=== PATIENT | female | born 1985 | race African-American/Black ===

== ENCOUNTER 2016-05-22 15:36 | Emergency (ER) | payer MEDICAID ==
[~2016-05-22] VITALS: Ht 167.6 cm; Wt 120.0 kg
[~2016-05-22 15:36] MED LIST: ALBUAER3 INH; ASPI325T PO; IBUP-232 PO; PHEN1TAB84 PO
[2016-05-22 15:37] VITALS: BP 119/99; PULSE 97; RESP 15; TEMP 98.6; O2SAT 98
--- NOTE | 2016-05-22 17:06 | PD ---
HPI Chief Complaint: Respiratory Symptoms Time Seen by Provider: 17:06 Travel History International Travel<30 days: No Contact w/Intl Traveler<30days: No Traveled to known affect area: No History of Present Illness HPI 30-year-old female presents to emergency department for evaluation of nausea, vomiting, diarrhea, fever, chills, cough, and chest congestion worsening over the last 5 days. Patient states that she feels "awful." She is unable to keep anything down. Denies any hematemesis or hematochezia. No urinary symptoms. No chest pain or tightness. No other symptoms to report. 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, WAS IN [facility] FOR 8 MONTHS IN 2011) Psychiatric: Yes Reproductive: Yes (teratoma of the ovary) Respiratory: Yes (asthma) Immunizations Current: No Migraines: No Myocardial Infarction: No Radiation Therapy: No Renal Failure: Yes Seizures: Yes Sleep Apnea: No Thyroid Disease: No Ulcer: Yes (stomach) ?: Not Menopausal: No : 5 Para: 3 Miscarriage: 1 : 1 Ovarian Cysts: Yes Past Surgical History Abdominal Surgery: No AICD: No Arteriovenous Shunt: No Cardiac Surgery: No Ear Surgery: No Endocrine Surgery: No Eye Surgery: No Genitourinary Surgery: No Gynecologic Surgery: Yes (BILAT OOPHORECTOMY) Insulin Pump: No Joint Replacement: No Oral Surgery: No Pacemaker: No Thoracic Surgery: No Other Surgery: Yes (ovary removed) Social History Alcohol Use: No Tobacco Use: Yes (CIGARS) Substance Use: Yes (MARIJUANA LAST WEEK) Allergies-Medications (Allergen,Severity, Reaction): Coded Allergies: Penicillin (Verified Allergy, Severe, UNKNOWN, 05/22/16) Tramadol (Verified Allergy, Severe, Anaphylaxis, 05/22/16) Sumatriptan (Verified Allergy, Intermediate, 05/22/16) increased headache Reported Meds & Prescriptions Reported Meds & Active Scripts Active Reported Adipex-P (Phentermine HCl) 37.5 Mg Tab 37.5 Mg PO DAILY Review of Systems Except as stated in HPI: all other systems reviewed are Neg Physical Exam Narrative GENERAL: Well-nourished female patient, lying in bed, in no acute distress SKIN: Warm and dry. HEAD: Atraumatic. Normocephalic. EYES: Pupils equal and round. No scleral icterus. No injection or drainage. ENT: No nasal bleeding. There is clear nasal discharge. Mucous membranes pink and moist. NECK: Trachea midline. No JVD. CARDIOVASCULAR: Elevated rate and rhythm. No murmur appreciated. RESPIRATORY: No accessory muscle use. Coarse to auscultation. Breath sounds equal bilaterally. GASTROINTESTINAL: Abdomen soft, non-tender, nondistended. Hepatic and splenic margins not palpable. MUSCULOSKELETAL: No obvious deformities. No clubbing. No cyanosis. No edema. NEUROLOGICAL: Awake and alert. No obvious cranial nerve deficits. Motor grossly within normal limits. Normal speech. PSYCHIATRIC: Appropriate mood and affect; insight and judgment normal. Data Data Last Documented VS Vital Signs Date Time Temp Pulse Resp B/P Pulse Ox O2 Delivery O2 Flow Rate FiO2 05/22/16 22:39 84 20 98 Room Air 05/22/16 22:39 124/67 05/22/16 15:37 98.6 Orders Influenzae A/B Antigen (05/22/16 17:03) Chest, Single Ap (05/22/16 ) Complete Blood Count With Diff (05/22/16 17:03) Basic Metabolic Panel (Bmp) (05/22/16 17:03) Urinalysis - C+S If Indicated (05/22/16 17:03) Ed Urine Pregnancytest Poc (05/22/16 17:03) Albuterol-Ipratropium Neb (Duoneb Neb) (05/22/16 17:15) Sodium Chlor 0.9% 1000 Ml Inj (Ns 1000 M (05/22/16 23:00) Ondansetron Inj (Zofran Inj) (05/22/16 23:00) Albuterol-Ipratropium Neb (Duoneb Neb) (05/23/16 01:00) Labs Laboratory Tests Test 05/22/16 05/22/16 18:00 18:30 White Blood Count 2.2 TH/MM3 Red Blood Count 4.52 MIL/MM3 Hemoglobin 13.2 GM/DL Hematocrit 39.7 % Mean Corpuscular Volume 87.9 FL Mean Corpuscular Hemoglobin 29.2 PG Mean Corpuscular Hemoglobin 33.2 % Concent Red Cell Distribution Width 13.4 % Platelet Count 182 TH/MM3 Mean Platelet Volume 8.1 FL Neutrophils (%) (Auto) 46.4 % Lymphocytes (%) (Auto) 43.8 % Monocytes (%) (Auto) 8.8 % Eosinophils (%) (Auto) 0.7 % Basophils (%) (Auto) 0.3 % Neutrophils # (Auto) 1.0 TH/MM3 Lymphocytes # (Auto) 1.0 TH/MM3 Monocytes # (Auto) 0.2 TH/MM3 Eosinophils # (Auto) 0.0 TH/MM3 Basophils # (Auto) 0.0 TH/MM3 CBC Comment DIFF FINAL Differential Comment Sodium Level 138 MEQ/L Potassium Level 3.9 MEQ/L Chloride Level 104 MEQ/L Carbon Dioxide Level 28.3 MEQ/L Anion Gap 6 MEQ/L Blood Urea Nitrogen 17 MG/DL Creatinine 0.82 MG/DL Estimat Glomerular Filtration 98 ML/MIN Rate Random Glucose 87 MG/DL Calcium Level 8.5 MG/DL Urine Color YELLOW Urine Turbidity HAZY Urine pH 6.0 Urine Specific [place] 1.026 Urine Protein 100 mg/dL Urine Glucose (UA) NEG mg/dL Urine Ketones NEG mg/dL Urine Occult Blood NEG Urine Nitrite NEG Urine Bilirubin NEG Urine Urobilinogen 2.0 MG/DL Urine Leukocyte Esterase NEG Urine RBC LESS THAN 1 /hpf Urine WBC 3 /hpf Urine Squamous Epithelial 3 /hpf Cells Urine Bacteria OCC /hpf Urine Mucus FEW /lpf Microscopic Urinalysis Comment CULT NOT INDICATED MDM Medical Decision Making Medical Screen Exam Complete: Yes Emergency Medical Condition: Yes Medical Record Reviewed: Yes Differential Diagnosis Influenza versus pneumonia versus gastroenteritis versus viral syndrome Narrative Course 30-year-old female presents to emergency department for evaluation. Patient appears without distress however she appears like she does not feel well. Workup was initiated in triage. Once a medical bed becomes available, patient will be transferred and care assumed by that provider Condition: Stable Joanna Mendez May 22, 2016 17:06
[2016-05-22] MEDS ORDERED: RESP: ALBUTEROL 2.5 MG/IPRATROPIUM 0.5 MG NEB (SCH) NEB ONE (17:15)
--- NOTE | 2016-05-22 17:21 | RADRPT ---
EXAM DATE/TIME: 05/22/2016 17:14 [facility] COMPARISON: CHEST SINGLE AP, March 28, 2016, 17:55. INDICATIONS : Cough and congestion. MEDICAL HISTORY : Asthma. SURGICAL HISTORY : None. ENCOUNTER: Initial ACUITY: 4 - 6 days PAIN SCORE: 0/10 LOCATION: Bilateral chest FINDINGS: A single view of the chest demonstrates the lungs to be symmetrically aerated without evidence of mas s, infiltrate or effusion. The cardiomediastinal contours are unremarkable. Osseous structures are intact. CONCLUSION: No acute disease. No significant change has occurred. Colby Bright MD on May 22, 2016 at 17:19 Board Certified Radiologist. This report was verified electronically.
[2016-05-22 18:19] LABS: BASOPHIL % 0.3 % (0.0-2.0); EOSINOPHIL % 0.7 % (0.0-4.0); HEMATOCRIT 39.7 % (35.0-46.0); HEMO FLAGS DIFF FINAL; LYMPH % 43.8 % (9.0-44.0); MEAN CELL VOLUME 87.9 FL (80.0-100.0); MEAN CORPUSCULAR HEMOGLOBIN 29.2 PG (27.0-34.0); MEAN CORPUSCULAR HGB CONC 33.2 % (32.0-36.0); MONO % 8.8 % (0.0-8.0); NEUT % 46.4 % (16.0-70.0); PLATELET COUNT 182 TH/MM3 (150-450); RED BLOOD COUNT 4.52 MIL/MM3 (4.00-5.30); RED CELL DISTRIBUTION WIDTH 13.4 % (11.6-17.2); WHITE BLOOD COUNT 2.2 TH/MM3 (4.0-11.0)
[2016-05-22 18:47] LABS: BICARBONATE 28.3 MEQ/L (21.0-32.0); POTASSIUM 3.9 MEQ/L (3.5-5.1)
[2016-05-22 19:09] LABS: BACTERIA, URINE OCC /hpf; BLOOD, URINE NEG (NEG); COMMENT (UR) CULT NOT INDICATED; CULTURE IF INDICATED CULT NOT INDICATED; GLUCOSE,URINE NEG (NEG); KETONE, URINE NEG (NEG); MUCUS URINE FEW /lpf (OCC); NITRITE,URINE NEG (NEG); SQUAMOUS EPITHELIAL CELL URINE 3 /hpf (0-5); URINE COLOR YELLOW (YELLW/STRAW)
[2016-05-22 22:39] VITALS: BP 124/67; PULSE 65; RESP 18; O2SAT 98
[2016-05-22] MEDS ORDERED: ONDANSETRON HCL 4 MG/2 ML VIAL IV PUSH ONE (23:00)
[2016-05-22] MEDS ORDERED: SODIUM CHLOR 0.9% 1000 ML INJ 1,000 ML IV ONE (23:00)
--- NOTE | 2016-05-22 23:05 | PD ---
Physical Exam Date Seen by Provider: May 22, 2016 Data Data Last Documented VS Vital Signs Date Time Temp Pulse Resp B/P Pulse Ox O2 Delivery O2 Flow Rate FiO2 05/22/16 22:39 84 20 98 Room Air 05/22/16 22:39 124/67 05/22/16 15:37 98.6 Orders Influenzae A/B Antigen (05/22/16 17:03) Chest, Single Ap (05/22/16 ) Complete Blood Count With Diff (05/22/16 17:03) Basic Metabolic Panel (Bmp) (05/22/16 17:03) Urinalysis - C+S If Indicated (05/22/16 17:03) Ed Urine Pregnancytest Poc (05/22/16 17:03) Albuterol-Ipratropium Neb (Duoneb Neb) (05/22/16 17:15) Sodium Chlor 0.9% 1000 Ml Inj (Ns 1000 M (05/22/16 23:00) Ondansetron Inj (Zofran Inj) (05/22/16 23:00) Labs Laboratory Tests Test 05/22/16 05/22/16 18:00 18:30 White Blood Count 2.2 TH/MM3 Red Blood Count 4.52 MIL/MM3 Hemoglobin 13.2 GM/DL Hematocrit 39.7 % Mean Corpuscular Volume 87.9 FL Mean Corpuscular Hemoglobin 29.2 PG Mean Corpuscular Hemoglobin 33.2 % Concent Red Cell Distribution Width 13.4 % Platelet Count 182 TH/MM3 Mean Platelet Volume 8.1 FL Neutrophils (%) (Auto) 46.4 % Lymphocytes (%) (Auto) 43.8 % Monocytes (%) (Auto) 8.8 % Eosinophils (%) (Auto) 0.7 % Basophils (%) (Auto) 0.3 % Neutrophils # (Auto) 1.0 TH/MM3 Lymphocytes # (Auto) 1.0 TH/MM3 Monocytes # (Auto) 0.2 TH/MM3 Eosinophils # (Auto) 0.0 TH/MM3 Basophils # (Auto) 0.0 TH/MM3 CBC Comment DIFF FINAL Differential Comment Sodium Level 138 MEQ/L Potassium Level 3.9 MEQ/L Chloride Level 104 MEQ/L Carbon Dioxide Level 28.3 MEQ/L Anion Gap 6 MEQ/L Blood Urea Nitrogen 17 MG/DL Creatinine 0.82 MG/DL Estimat Glomerular Filtration 98 ML/MIN Rate Random Glucose 87 MG/DL Calcium Level 8.5 MG/DL Urine Color YELLOW Urine Turbidity HAZY Urine pH 6.0 Urine Specific [place] 1.026 Urine Protein 100 mg/dL Urine Glucose (UA) NEG mg/dL Urine Ketones NEG mg/dL Urine Occult Blood NEG Urine Nitrite NEG Urine Bilirubin NEG Urine Urobilinogen 2.0 MG/DL Urine Leukocyte Esterase NEG Urine RBC LESS THAN 1 /hpf Urine WBC 3 /hpf Urine Squamous Epithelial 3 /hpf Cells Urine Bacteria OCC /hpf Urine Mucus FEW /lpf Microscopic Urinalysis Comment CULT NOT INDICATED MDM Medical Record Reviewed: Yes Supervised Visit with EDEN: Yes Interpretation(s) Vital Signs Date Time Temp Pulse Resp B/P Pulse Ox O2 Delivery O2 Flow Rate FiO2 05/22/16 22:39 84 20 98 Room Air 05/22/16 22:39 65 18 124/67 98 Room Air 05/22/16 15:37 98.6 97 15 119/99 98 CBC & BMP Diagram 05/22/16 18:00 Microbiology Date/Time Procedure Status Source Growth 05/22/16 18:00 Influenza Types A,B Antigen (DIANA) - Final Complete Nasal Washing Positive For Flu B Antigen Last Impressions Chest X-Ray 05/22/16 0000 Signed Impressions: Service Date/Time: Sunday, May 22, 2016 17:14 - CONCLUSION: No acute disease. No significant change has occurred. Colby Bright MD Differential Diagnosis Viral syndrome, influenza, pneumonia, electrolyte abnormality, dehydration Narrative Course I, Dr. Johnston, have reviewed the advance practice practitioner's documentation and am in agreement, met with the patient face to face, made the diagnosis, and the medical decision making was done by me. *My assessment and Findings: Patient is a 30-year-old female who presents to emergency room with complaints of not feeling well for the past 5 days. Patient reports that she has been feeling nauseous, reports that she is vomiting, reports that she is fevers chills or myalgias. Reports that she has had increased cough congestion, reports that she is not feeling well. Reports that she feels dehydrated, reports that she's been having diarrhea as well. Reports that she just feels achy all over body. Reports no sick contacts. Reports no recent travels or trips. Vital Signs Date Time Temp Pulse Resp B/P Pulse Ox O2 Delivery O2 Flow Rate FiO2 05/22/16 22:39 84 20 98 Room Air 05/22/16 22:39 65 18 124/67 98 Room Air 05/22/16 15:37 98.6 97 15 119/99 98 CBC & BMP Diagram 05/22/16 18:00 Microbiology Date/Time Procedure Status Source Growth 05/22/16 18:00 Influenza Types A,B Antigen (DIANA) - Final Complete Nasal Washing Positive For Flu B Antigen Patient with positive for influenza b. Reviewed all labs and all studies with patient in detail. Discussed need for IV hydration. Patient will return to emergency room as needed. Diagnosis Primary Impression: Influenza B Patient Instructions: General Instructions Additional Instruction: Please follow-up with your primary care doctor as soon as possible Return to ER as needed Return to ER if symptoms progress or worsen Please maintain hydration and drink plenty of fluids. Disposition: 01 DISCHARGE HOME Condition: Stable Serena Johnston DO May 22, 2016 23:05
[2016-05-23] MEDS ORDERED: RESP: ALBUTEROL 2.5 MG/IPRATROPIUM 0.5 MG NEB (SCH) NEB ONE (01:00)
== END 2016-05-23 01:57 | disposition home or self-care (01) ==
LOC: NETRI 15:36 → NEPA 05-23 01:57
DX: J10.1 Influenza due to other identified influenza virus with other respiratory manifestations (principal); R11.2 Nausea with vomiting, unspecified; R19.7 Diarrhea, unspecified; R50.9 Fever, unspecified; Z72.0 Tobacco use; Z87.09 Personal history of other diseases of the respiratory system; Z86.59 Personal history of other mental and behavioral disorders; Z87.19 Personal history of other diseases of the digestive system; Z87.448 Personal history of other diseases of urinary system; Z87.442 Personal history of urinary calculi; Z87.39 Personal history of other diseases of the musculoskeletal system and connective tissue; Z86.69 Personal history of other diseases of the nervous system and sense organs
CPT/HCPCS: 71010; 80048; 81001; 85025; 87804; 94640; 94664; 96374; 99284; J2405; J7030

== ENCOUNTER 2016-10-01 17:22 | Observation (INO) | payer MEDICAID ==
[~2016-10-01] VITALS: Ht 167.6 cm; Wt 130.0 kg
[~2016-10-01 17:22] MED LIST changes: -ALBUAER3 INH; -ASPI325T PO; -IBUP-232 PO
[2016-10-01 17:24] VITALS: BP 132/92; PULSE 89; RESP 17; TEMP 98.9; O2SAT 99
[2016-10-01 17:42] VITALS: BP 129/96; PULSE 98; RESP 25; O2SAT 96
--- NOTE | 2016-10-01 18:23 | RADRPT ---
EXAM DATE/TIME: 10/01/2016 18:12 [facility] COMPARISON: CHEST SINGLE AP, May 22, 2016, 17:14. INDICATIONS : Chest pain. MEDICAL HISTORY : None. SURGICAL HISTORY : None. ENCOUNTER: Initial ACUITY: 1 day PAIN SCORE: 0/10 LOCATION: Bilateral chest FINDINGS: Patchy and mild but widespread air space opacities are seen of both lungs, right slightly more so emmett n left. All lobes appear to be involved but perhaps a somewhat right upper lobe predominance. No pleu ral effusion. No pneumothorax. Heart size stable, within normal limits. CONCLUSION: Widespread bilateral airspace opacities of both lungs have developed, most likely infectious or infla mmatory. Lenin Mcneill MD on October 01, 2016 at 18:20 Board Certified Radiologist. This report was verified electronically.
[2016-10-01 18:25] LABS: AUTOMATED NEUTROPHIL # 3.3 TH/MM3 (1.8-7.7); BASOPHIL # 0.1 TH/MM3 (0-0.2); BASOPHIL % 1.3 % (0.0-2.0); EOSINOPHIL # 0.2 TH/MM3 (0-0.4); EOSINOPHIL % 3.8 % (0.0-4.0); HEMATOCRIT 37.6 % (35.0-46.0); LYMPH % 11.5 % (9.0-44.0); LYMPHOCYTE # 0.6 TH/MM3 (1.0-4.8); MEAN CORPUSCULAR HEMOGLOBIN 28.7 PG (27.0-34.0); MEAN CORPUSCULAR HGB CONC 32.3 % (32.0-36.0); MONO % 19.1 % (0.0-8.0); NEUT % 64.3 % (16.0-70.0); PLATELET COUNT 263 TH/MM3 (150-450); RED BLOOD COUNT 4.23 MIL/MM3 (4.00-5.30); RED CELL DISTRIBUTION WIDTH 13.8 % (11.6-17.2); WHITE BLOOD COUNT 5.2 TH/MM3 (4.0-11.0)
[2016-10-01 18:36] LABS: HEMO FLAGS DIFF FINAL
--- NOTE | 2016-10-01 18:36 | PD ---
HPI Chief Complaint: Respiratory Symptoms Time Seen by Provider: 17:39 Travel History International Travel<30 days: No Contact w/Intl Traveler<30days: No Traveled to known affect area: No History of Present Illness HPI This is a 31-year-old female with a history of sarcoidosis, who presents today with complaints of chest pressure, tightness, shortness of breath, cough and congestion, sinus drainage. The patient reports most of her symptoms have been present for at least 2 weeks and up to 3 weeks. The patient denies any fevers, chills. She states she has not been seen for her sarcoidosis and quite some time. She reports that she's been coughing up white and yellow phlegm. There is no nausea or diaphoresis. 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, WAS IN [facility] FOR 8 MONTHS IN 2010) Psychiatric: Yes Reproductive: Yes (teratoma of the ovary) Respiratory: Yes (asthma) Immunizations Current: No Migraines: No Myocardial Infarction: No Radiation Therapy: No Renal Failure: Yes Seizures: Yes Sleep Apnea: No Thyroid Disease: No Ulcer: Yes (stomach) Influenza Vaccination: No ?: Not LMP: DOES NOT GET Menopausal: No : 5 Para: 3 Miscarriage: 1 : 1 Ovarian Cysts: Yes Past Surgical History Abdominal Surgery: Yes (UMBILICAL HERNIA REPAIR) AICD: No Arteriovenous Shunt: No Cardiac Surgery: No Ear Surgery: No Endocrine Surgery: No Eye Surgery: No Genitourinary Surgery: No Gynecologic Surgery: Yes (BILAT OOPHORECTOMY) Insulin Pump: No Joint Replacement: No Oral Surgery: No Pacemaker: No Thoracic Surgery: No Other Surgery: Yes (ovary removed) Social History Alcohol Use: No Tobacco Use: No Substance Use: Yes (MARIJUANA LAST WEEK) Allergies-Medications (Allergen,Severity, Reaction): Coded Allergies: Penicillin (Verified Allergy, Severe, UNKNOWN, 6/11/17) Tramadol (Verified Allergy, Severe, Anaphylaxis, 10/01/16) Sumatriptan (Verified Allergy, Intermediate, 10/01/16) increased headache Amoxicillin (Verified Allergy, Unknown, 10/01/16) Reported Meds & Prescriptions Reported Meds & Active Scripts Active No Active Prescriptions or Reported Medications Review of Systems Except as stated in HPI: all other systems reviewed are Neg HENT: Positive: Headaches (sinus pressure in her frontal and maxillary sinus areas.), No: Neck Pain Cardiovascular: Positive: Chest Pain or Discomfort (chest tightness), No: Palpitations, Irregular Rhythm Respiratory: Positive: Cough, Shortness of Breath, No: Wheezing Gastrointestinal: No: Vomiting, Abdominal Pain Genitourinary: No: Frequency, Dysuria Musculoskeletal: No: Weakness, Pain Neurologic: Positive: Headache (bifrontal sinuses and maxillary sinuses), No: Weakness, Dizziness, Syncope Physical Exam Narrative GENERAL: Well-developed well-nourished female in no acute respiratory distress. SKIN: Focused skin assessment warm/dry. HEAD: Atraumatic. Normocephalic. EYES: No scleral icterus. Slight scleral injection bilaterally. No drainage. ENT: No nasal bleeding. Positive nasal congestion. Mucous membranes pink and moist. NECK: Trachea midline. Supple. CARDIOVASCULAR: Regular rate and rhythm. No murmur appreciated. RESPIRATORY: No accessory muscle use. Clear to auscultation. Breath sounds equal bilaterally. GASTROINTESTINAL: Abdomen soft, non-tender, nondistended. Hepatic and splenic margins not palpable. MUSCULOSKELETAL: No obvious deformities. No clubbing. No cyanosis. No edema. NEUROLOGICAL: Awake and alert. No obvious cranial nerve deficits. Motor grossly within normal limits. Normal speech. PSYCHIATRIC: Appropriate mood and affect; insight and judgment normal. Data Data Last Documented VS Vital Signs Date Time Temp Pulse Resp B/P Pulse Ox O2 Delivery O2 Flow Rate FiO2 10/01/16 17:42 98 25 129/96 96 Room Air 10/01/16 17:24 98.9 Orders Electrocardiogram (10/01/16 17:56) Complete Blood Count With Diff (10/01/16 17:56) Comprehensive Metabolic Panel (10/01/16 17:56) Ckmb (Isoenzyme) Profile (10/01/16 17:56) Troponin I (10/01/16 17:56) Urinalysis - C+S If Indicated (10/01/16 17:56) Chest, Pa & Lat (10/01/16 17:56) Iv Access Insert/Monitor (10/01/16 17:56) Ecg Monitoring (10/01/16 17:56) Oximetry (10/01/16 17:56) Methylprednisolone So Succ Inj (Solumedr (10/01/16 19:00) Sodium Chlor 0.9% 1000 Ml Inj (Ns 1000 M (10/01/16 19:00) Labs Laboratory Tests Test 10/01/16 18:04 White Blood Count 5.2 TH/MM3 Red Blood Count 4.23 MIL/MM3 Hemoglobin 12.1 GM/DL Hematocrit 37.6 % Mean Corpuscular Volume 89.0 FL Mean Corpuscular Hemoglobin 28.7 PG Mean Corpuscular Hemoglobin 32.3 % Concent Red Cell Distribution Width 13.8 % Platelet Count 263 TH/MM3 Mean Platelet Volume 7.7 FL Neutrophils (%) (Auto) 64.3 % Lymphocytes (%) (Auto) 11.5 % Monocytes (%) (Auto) 19.1 % Eosinophils (%) (Auto) 3.8 % Basophils (%) (Auto) 1.3 % Neutrophils # (Auto) 3.3 TH/MM3 Lymphocytes # (Auto) 0.6 TH/MM3 Monocytes # (Auto) 1.0 TH/MM3 Eosinophils # (Auto) 0.2 TH/MM3 Basophils # (Auto) 0.1 TH/MM3 CBC Comment DIFF FINAL Differential Comment Sodium Level 139 MEQ/L Potassium Level 4.4 MEQ/L Chloride Level 103 MEQ/L Carbon Dioxide Level 26.8 MEQ/L Anion Gap 9 MEQ/L Blood Urea Nitrogen 22 MG/DL Creatinine 1.03 MG/DL Estimat Glomerular Filtration 75 ML/MIN Rate Random Glucose 82 MG/DL Calcium Level 10.5 MG/DL Total Bilirubin 0.4 MG/DL Aspartate Amino Transf 52 U/L (AST/SGOT) Alanine Aminotransferase 71 U/L (ALT/SGPT) Alkaline Phosphatase 146 U/L Total Creatine Kinase 77 U/L Troponin I LESS THAN 0.02 NG/ML Total Protein 7.9 GM/DL Albumin 3.1 GM/DL MDM Medical Decision Making Medical Screen Exam Complete: Yes Emergency Medical Condition: Yes Differential Diagnosis Bronchitis versus sinusitis versus ACS versus exacerbation of sarcoid Narrative Course 31-year-old female with history of sarcoidosis which is been untreated for quite some time, who presents today with points of shortness of breath and pleuritic chest pain. The patient has had the symptoms for several weeks. She is also reporting upper respiratory congestion and sinus pain. The patient has a chest x-ray that shows diffuse inflammatory changes versus infiltrates. I believe this is likely secondary to her sarcoid and is likely inflammatory. She 's been given a dose of IV Solu-Medrol. BUN and creatinine are also elevated and she has been started on normal saline fluid. There [facility] for [facility]. I discussed this with the patient and she is amenable. She will need to be ruled out in addition to be treated for the and inflammatory changes in her lungs. Diagnosis Primary Impression: Sarcoidosis of lung Additional Impressions: [id number] kidney injury Chest pain upper respiratory congestion with sinus discomfort Scripts No Active Prescriptions or Reported Meds Adam Lopez MD Oct 01, 2016 18:36
[2016-10-01 18:45] LABS: ANION GAP 9 MEQ/L (5-15); AST (GOT) 52 U/L (15-37); BICARBONATE 26.8 MEQ/L (21.0-32.0); BLOOD UREA NITROGEN 22 MG/DL (7-18); CHLORIDE 103 MEQ/L (98-107); GLOMERULAR FILTRATION RATE 75 ML/MIN (>89); POTASSIUM 4.4 MEQ/L (3.5-5.1); SODIUM (NA) 139 MEQ/L (136-145)
[2016-10-01 18:54] LABS: ALKALINE PHOSPHATASE 146 U/L (45-117); ALT (GPT) 71 U/L (10-53); TOTAL BILIRUBIN ADULT 0.4 MG/DL (0.2-1.0)
[2016-10-01 18:55] LABS: CREATINE KINASE 77 U/L (26-192)
[2016-10-01] MEDS ORDERED: SODIUM CHLOR 0.9% 1000 ML INJ 1,000 ML IV SCH (19:00)
[2016-10-01] MEDS ORDERED: methylPREDNISolone SOD SUCC 125 MG/2 ML VIAL IV PUSH ONE (19:00)
[2016-10-01 19:16] VITALS: BP 118/58; PULSE 78; RESP 16; O2SAT 97
[2016-10-01] MEDS: SODIUM CHLOR 0.9% 1000 ML INJ 1,000 ML IV SCH (19:51)
[2016-10-01] MEDS ORDERED: LACTULOSE SYRUP 20 GM/30 ML CUP PO PRN (20:00)
[2016-10-01] MEDS ORDERED: MAGNESIUM HYDROXIDE SUSP 30 ML CUP PO PRN (20:00)
[2016-10-01] MEDS ORDERED: ACETAMINOPHEN 325 MG TAB PO PRN (20:00)
[2016-10-01] MEDS ORDERED: ONDANSETRON HCL 4 MG/2 ML VIAL IVP PRN (20:00)
[2016-10-01] MEDS ORDERED: ZOLPIDEM TARTRATE 5 MG TAB PO PRN (20:00)
[2016-10-01] MEDS ORDERED: SENNOSIDES 8.6 MG TAB PO PRN (20:00)
[2016-10-01] MEDS ORDERED: SODIUM CHLORIDE 0.9% FLUSH 10 ML FLUSH IV FLUSH PRN (20:00)
[2016-10-01] MEDS ORDERED: BISACODYL 10 MG SUPP RECTAL PRN (20:00)
[2016-10-01 21:00] VITALS: O2SAT 96
[2016-10-01] MEDS: SODIUM CHLORIDE 0.9% FLUSH 10 ML FLUSH IV FLUSH SCH (21:00)
--- NOTE | 2016-10-01 21:05 | HHI.HP ---
[facility] Service [facility] Primary Care Physician Nancy Boateng MD Admission Diagnosis Acute sarcoidosis exacerbation, dehydration, chest pain/atypical Diagnoses: Chief Complaint: Worsening shortness of breath Travel History International Travel<30 Days: No Contact w/Intl Traveler <30 Da: No Traveled to Known Affected Are: No History of Present Illness Written by Sneha Schulte, acting as scribe for Dr. Koch on 10/01/16 at 21 :10. This note was transcribed by scribMuna TAPIA. I, Dr. Noemy Koch personally performed the history, physical exam, and medical decision making; and confirmed the accuracy of the information in the transcribed note. Authenticated by Dr. Noemy Koch on 10/01/16 at 21:10. This is a 31 year old patient with a past medical history which includes sarcoidosis, chronic abdominal pain, ventral hernia, seizures, asthma, stomach ulcers and GERD. Patient presents to the emergency department today she reports with multiple complaints. Patient reports the biggest concern is her worsening shortness of breath. Patient reports that she has had nasal congestion and a cough productive of thick yellow phlegm associated with shortness of breath for the past 2 months. Patient reports has gotten so bad that she had missed work today therefore she proceeded to the emergency department for further evaluation and treatment. Patient also describes chest pain described as a sharp pain with tightness located in the midsternal area with radiation across her chest. Patient reports the pain comes and goes spontaneously she is not sure what makes the pain better or worse and it does not seem to be related to activity. Patient reports the pain occasionally radiates to the back there is no associated nausea vomiting or diaphoresis. Patient also complains of a severe throbbing type headache located throughout her head. Patient reports that the headache began when she arrived to the emergency department and has not resolved. Patient has no nuchal rigidity on exam and discussed denies neck pain. Patient also complains that her bilateral lower extremities, "feel weird." Patient mainly indicates the bilateral thigh area denies specific pain change in sensation or motor ability and is unable to elaborate further on the description of weird feeling. Patient denies fevers chills nausea vomiting diarrhea or constipation Patient ports in the past she has been on prednisone for her sarcoidosis but has not taken this for quite some time and has not followed up with a provider regarding her sarcoidosis. Review of Systems Except as stated in HPI: all other systems reviewed are Neg Past Family Social History Past Medical History Chronic Abd Pain, Ventral Hernia, seizures, asthma, stomach ulcers, ovarian teratoma and GERD Past Surgical History Bilateral Oophorectomy Reported Medications No Active Prescriptions or Reported Medications Allergies: Coded Allergies: Penicillin (Verified Allergy, Severe, UNKNOWN, 10/01/16) Tramadol (Verified Allergy, Severe, Anaphylaxis, 10/01/16) Sumatriptan (Verified Allergy, Intermediate, 10/01/16) increased headache Amoxicillin (Verified Allergy, Unknown, 10/01/16) Active Ordered Medications Current Medications Medications (Trade) Dose Ordered Sig/Adelso Route Start Time Stop Time Status Last Admin Methylprednisolone Sodium Succinate 40 mg 40 mg Q6HR IV PUSH 10/02/16 00:00 10/01/16 23:14 (NS 1000 ml Inj) 1,000 ml @ 100 mls/hr Q10H IV 10/01/16 19:51 (NS Flush) 2 ml UNSCH PRN IV FLUSH 10/01/16 20:00 (NS Flush) 2 ml BID IV FLUSH 10/01/16 21:00 (Tylenol) 650 mg Q4H PRN PO 10/01/16 20:00 (Zofran Inj) 4 mg Q6H PRN IVP 10/01/16 20:00 (Ambien) 5 mg HS PRN PO 10/01/16 20:00 (Lovenox Inj) 40 mg Q24H SQ 10/01/16 20:00 10/01/16 23:21 (Caroline-Colace) 1 tab BID PO 10/01/16 21:00 (Milk Of Magnesia Liq) 30 ml Q12H PRN PO 10/01/16 20:00 (Senokot) 17.2 mg Q12H PRN PO 10/01/16 20:00 (Dulcolax Supp) 10 mg DAILY PRN RECTAL 10/01/16 20:00 (Lactulose Liq) 30 ml DAILY PRN PO 10/01/16 20:00 (Morphine Inj) 2 mg Q4HR PRN IV PUSH 10/01/16 22:15 10/01/16 23:15 (Fioricet 325-50-40) 1 tab Q6H PRN PO 10/01/16 23:00 ([place] Dequan Adams) 2 spray Q4H PRN EACH NARE 10/01/16 23:00 (Flonase Dequan Spr) 1 spray BID NASAL 10/01/16 23:00 10/01/16 23:13 Family History Reviewed and noncontributory patient denies family medical history of diabetes hypertension and CAD, sarcoidosis or CVA Social History Smokes Marijuana three time a day. Denies tobacco use or ETOH use Physical Exam Vital Signs Vital Signs Date Time Temp Pulse Resp B/P Pulse Ox O2 Delivery O2 Flow Rate FiO2 10/01/16 19:16 78 16 118/58 97 Nasal Cannula 2 10/01/16 17:42 98 25 129/96 96 Room Air 10/01/16 17:24 98.9 89 17 132/92 99 Physical Exam GENERAL: This is a morbidly obese, well-developed patient, in no apparent distress. SKIN: No rashes, ecchymoses or lesions. Cool and dry. HEAD: Atraumatic. Normocephalic. No temporal or scalp tenderness. EYES: Pupils equal round and reactive. Extraocular motions intact. No scleral icterus. No injection or drainage. ENT: Nose without bleeding, purulent drainage or septal hematoma. Throat without erythema, tonsillar hypertrophy or exudate. Uvula midline. Airway patent. NECK: Trachea midline. No JVD or lymphadenopathy. Supple, nontender, no meningeal signs. CARDIOVASCULAR: Regular rate and rhythm without murmurs, gallops, or rubs. RESPIRATORY: Clear to auscultation. Breath sounds equal bilaterally. No wheezes , rales, or rhonchi. GASTROINTESTINAL: Abdomen soft, non-tender, nondistended. No guarding. MUSCULOSKELETAL: Extremities without clubbing, cyanosis, or edema. No joint tenderness, effusion, or edema noted. No calf tenderness. Negative Homans sign bilaterally. NEUROLOGICAL: Awake and alert. No focal deficits appreciated. Motor and sensory grossly within normal limits. Five out of 5 muscle strength in all muscle groups. Normal speech. Laboratory Laboratory Tests Test 10/01/16 18:04 White Blood Count 5.2 Red Blood Count 4.23 Hemoglobin 12.1 Hematocrit 37.6 Mean Corpuscular Volume 89.0 Mean Corpuscular Hemoglobin 28.7 Mean Corpuscular Hemoglobin 32.3 Concent Red Cell Distribution Width 13.8 Platelet Count 263 Mean Platelet Volume 7.7 Neutrophils (%) (Auto) 64.3 Lymphocytes (%) (Auto) 11.5 Monocytes (%) (Auto) 19.1 Eosinophils (%) (Auto) 3.8 Basophils (%) (Auto) 1.3 Neutrophils # (Auto) 3.3 Lymphocytes # (Auto) 0.6 Monocytes # (Auto) 1.0 Eosinophils # (Auto) 0.2 Basophils # (Auto) 0.1 CBC Comment DIFF FINAL Differential Comment Sodium Level 139 Potassium Level 4.4 Chloride Level 103 Carbon Dioxide Level 26.8 Anion Gap 9 Blood Urea Nitrogen 22 Creatinine 1.03 Estimat Glomerular Filtration 75 Rate Random Glucose 82 Calcium Level 10.5 Total Bilirubin 0.4 Aspartate Amino Transf 52 (AST/SGOT) Alanine Aminotransferase 71 (ALT/SGPT) Alkaline Phosphatase 146 Total Creatine Kinase 77 Troponin I LESS THAN 0.02 Total Protein 7.9 Albumin 3.1 Result Diagram: 10/01/16 1804 10/01/16 1804 Imaging Last Impressions Chest X-Ray 10/01/16 1756 Signed Impressions: Service Date/Time: Saturday, October 01, 2016 18:12 - CONCLUSION: Widespread bilateral airspace opacities of both lungs have developed, most likely infectious or inflammatory. Lenin Mcneill MD Assessment and Plan Problem List: (1) Sarcoidosis ICD Code: D86.9 Status: Acute (2) Atypical chest pain ICD Code: R07.89 Status: Acute (3) Iccep-fg-aawosva kidney injury ICD Code: N17.9 Status: Acute (4) Headache ICD Code: R51 Status: Acute Assessment and Plan This is a 31 year old patient with a past medical history which includes sarcoidosis, chronic abdominal pain, ventral hernia, seizures, asthma, stomach ulcers and GERD. Patient presents to the emergency department today she reports with multiple complaints. Patient reports the biggest concern is her worsening shortness of breath. Patient reports that she has had nasal congestion and a cough productive of thick yellow phlegm associated with shortness of breath for the past 2 months. Also complains of chest tightness, bilateral lower extremities "feel weird," and headache. Sarcoidosis exacerbation Shortness of breath Patient received Solu-Medrol 125 mg IV times one start Solu-Medrol 40 mg IV every 6 hours Oxygen via nasal cannula to maintain oxygen saturation above 92% Consult pulmonology check ESR and Vitamin D level in AM Chest pain atypical rule out ACS Serial troponin and serial EKG Continuous telemetry monitoring Acute kidney injury likely secondary to dehydration IV fluids normal saline at 100 cc per hour Check BMP in a.m. Severe headache Fioricet PO CT head ordered Nasal congestion Start [place] as needed and Flonase DVT prophylaxis with Lovenox Discussed with ER provider, nursing and patient Sneha Schulte Oct 01, 2016 21:05 Noemy Koch MD Oct 02, 2016 03:40
[2016-10-01] MEDS: ENOXAPARIN SODIUM 40 MG/0.4 ML SYRINGE SQ SCH ×2 (21:30→23:21)
[2016-10-01] MEDS: DOCUSATE SODIUM 50 MG/SENNA 8.6 MG TAB PO SCH (21:30)
[2016-10-01 22:02] LABS: BLOOD, URINE MOD (NEG); COMMENT (UR) CULT NOT INDICATED; CULTURE IF INDICATED CULT NOT INDICATED; GLUCOSE,URINE NEG (NEG); KETONE, URINE NEG (NEG); MUCUS URINE FEW /lpf (OCC); NITRITE,URINE NEG (NEG); PH, URINE 5.5 (5.0-8.5); SQUAMOUS EPITHELIAL CELL URINE 2 /hpf (0-5); URINE COLOR YELLOW (YELLW/STRAW)
[2016-10-01] MEDS ORDERED: SODIUM CHLORIDE 0.65% NASAL SPRAY 45 ML BTL EACH NARE PRN (23:00)
[2016-10-01] MEDS: FLUTICASONE PROPIONATE 50 MCG/ACT 16 GM NASAL SPRAY NASAL SCH (23:13)
[2016-10-01] MEDS: methylPREDNISolone SOD SUCC 40 MG/1 ML VIAL IV PUSH SCH (23:14)
[2016-10-01] MEDS: MORPHINE SULFATE 4 MG/ML INJ IV PUSH PRN (23:15)
[2016-10-01 23:52] VITALS: BP 124/58; PULSE 68; RESP 18; TEMP 98.1; O2SAT 96
--- NOTE | 2016-10-02 00:21 | RADRPT ---
EXAM DATE/TIME: 10/02/2016 00:08 [facility] COMPARISON: CT BRAIN W/O CONTRAST, May 17, 2013, 8:28. INDICATIONS : Headache. RADIATION DOSE: 41.56 CTDIvol (mGy) MEDICAL HISTORY : Seizures. Hypertension. Gastroesophageal reflux disease. SURGICAL HISTORY : Bilateral oopherectomy ENCOUNTER: Initial ACUITY: 1 day PAIN SCALE: 7/10 LOCATION: cranial TECHNIQUE: Multiple contiguous axial images were obtained of the head. Using automated exposure control and adjustment of the mA and/or kV according to patient size, radiation dose was kept as low as reasonably achievable to obtain optimal diagnostic quality images. FINDINGS: There is no evidence for intracranial hemorrhage, mass effect, mass lesions, edema, or extra-axial fl uid collections. The visualized bony structures appear intact. The ventricles are normal size for t he patient's age. There are no signs of acute infarction for technique. There is extensive opacifica tion of the eithmoid air cells and to lesser degree bilateral sphenoid sinuses worse since the prior exam. CONCLUSION: Chronic sinusitis. KChelsey Ambrocio MD on October 02, 2016 at 0:19 Board Certified Radiologist. This report was verified electronically.
[2016-10-02 02:02] LABS: MEAN CELL VOLUME 91.6 FL (80.0-100.0); MEAN CORPUSCULAR HEMOGLOBIN 29.1 PG (27.0-34.0); MEAN CORPUSCULAR HGB CONC 31.7 % (32.0-36.0); PLATELET COUNT 191 TH/MM3 (150-450); RED BLOOD COUNT 4.58 MIL/MM3 (4.00-5.30); RED CELL DISTRIBUTION WIDTH 14.1 % (11.6-17.2); WHITE BLOOD COUNT 5.6 TH/MM3 (4.0-11.0)
[2016-10-02 02:03] LABS: HEMO FLAGS AUTO DIFF
[2016-10-02 02:27] LABS: ANION GAP 10 MEQ/L (5-15); BICARBONATE 25.2 MEQ/L (21.0-32.0); BLOOD UREA NITROGEN 20 MG/DL (7-18); CHLORIDE 103 MEQ/L (98-107); GLOMERULAR FILTRATION RATE 76 ML/MIN (>89); SODIUM (NA) 138 MEQ/L (136-145)
[2016-10-02] MEDS: MORPHINE SULFATE 4 MG/ML INJ IV PUSH PRN (02:59)
[2016-10-02 03:23] LABS: BANDS 6 % (0-6); METAMYELOCYTES 1 % (0-1); NEUTROPHIL # MANUAL DIFF 4.4 TH/MM3 (1.8-7.7); POLYS (SEG NEUTROPHILS) 71 % (16-70); WBC DIFF SAMPLE 100
[2016-10-02 03:24] LABS: SCAN/DIFF FINAL DIFF MANUAL
[2016-10-02 03:25] LABS: PLATELET ESTIMATE SMEAR NORMAL (NORMAL); PLATELET MORPHOLOGY NORMAL (NORMAL)
[2016-10-02 04:49] VITALS: BP 128/78; PULSE 77; RESP 18; TEMP 98; O2SAT 97
[2016-10-02] MEDS: SODIUM CHLOR 0.9% 1000 ML INJ 1,000 ML IV SCH (05:37)
[2016-10-02] MEDS: methylPREDNISolone SOD SUCC 40 MG/1 ML VIAL IV PUSH SCH (05:37)
[2016-10-02 07:53] VITALS: BP 138/85; PULSE 66; RESP 18; TEMP 98; O2SAT 96
[2016-10-02] MEDS: DOCUSATE SODIUM 50 MG/SENNA 8.6 MG TAB PO SCH (08:42)
[2016-10-02] MEDS: FLUTICASONE PROPIONATE 50 MCG/ACT 16 GM NASAL SPRAY NASAL SCH ×2 (08:42→20:13)
[2016-10-02] MEDS: SODIUM CHLORIDE 0.9% FLUSH 10 ML FLUSH IV FLUSH SCH ×2 (08:42→20:13)
--- NOTE | 2016-10-02 08:56 | HHI.PR ---
Subjective Remarks Follow-up for shortness of breath. The patient complains of right flank pain today, although she states that the pain is mild and has been there for a long time. She states she presented to the hospital because she was short of breath. She denies any further shortness of breath. She does state that she gets occasional bilateral sharp chest discomfort, none currently. She states that the chest discomfort does not have any exacerbating factors and is relieved by pushing on her chest. She also complains of chronic sinus congestion which causes a headache. She states that she has been taking Claritin, Sudafed, and Flonase with no relief. She also reports multiple skin nodules, none acute. She does have a PCP, but has not been following. 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 Objective Vitals Vital Signs Date Time Temp Pulse Resp B/P Pulse Ox O2 Delivery O2 Flow Rate FiO2 10/02/16 07:53 98.0 66 18 138/85 96 10/02/16 04:49 98.0 77 18 128/78 97 10/01/16 23:52 98.1 68 18 124/58 96 10/01/16 21:00 96 Nasal Cannula 2.00 10/01/16 19:16 78 16 118/58 97 Nasal Cannula 2 10/01/16 17:42 98 25 129/96 96 Room Air 10/01/16 17:24 98.9 89 17 132/92 99 I/O 10/01/16 10/01/16 10/01/16 10/02/16 10/02/16 10/02/16 07:00 15:00 23:00 07:00 15:00 23:00 Intake Total 120 ml Balance 120 ml Intake Oral 120 ml Result Diagram: 10/02/16 0124 10/02/16 0128 Other Results Laboratory Tests Test 10/01/16 10/01/16 10/02/16 10/02/16 18:04 21:50 01:24 01:28 Total Bilirubin 0.4 MG/DL Aspartate Amino Transf 52 U/L (AST/SGOT) Alanine Aminotransferase 71 U/L (ALT/SGPT) Alkaline Phosphatase 146 U/L Total Creatine Kinase 77 U/L Total Protein 7.9 GM/DL Albumin 3.1 GM/DL Urine Color YELLOW Urine Turbidity CLEAR Urine pH 5.5 Urine Specific [place] 1.020 Urine Protein TRACE mg/dL Urine Glucose (UA) NEG mg/dL Urine Ketones NEG mg/dL Urine Occult Blood MOD Urine Nitrite NEG Urine Bilirubin NEG Urine Urobilinogen 2.0 MG/DL Urine Leukocyte Esterase MOD Urine RBC 44 /hpf Urine WBC 5 /hpf Urine Squamous Epithelial 2 /hpf Cells Urine Mucus FEW /lpf Microscopic Urinalysis Comment CULT NOT INDICATED White Blood Count 5.6 TH/MM3 Red Blood Count 4.58 MIL/MM3 Hemoglobin 13.3 GM/DL Hematocrit 42.0 % Mean Corpuscular Volume 91.6 FL Mean Corpuscular Hemoglobin 29.1 PG Mean Corpuscular Hemoglobin 31.7 % Concent Red Cell Distribution Width 14.1 % Platelet Count 191 TH/MM3 Mean Platelet Volume 9.2 FL Neutrophils (%) (Auto) % Lymphocytes (%) (Auto) % Monocytes (%) (Auto) % Eosinophils (%) (Auto) % Basophils (%) (Auto) % Neutrophils # (Auto) TH/MM3 Lymphocytes # (Auto) TH/MM3 Monocytes # (Auto) TH/MM3 Eosinophils # (Auto) TH/MM3 Basophils # (Auto) TH/MM3 CBC Comment AUTO DIFF Differential Total Cells 100 Counted Neutrophils % (Manual) 71 % Band Neutrophils % 6 % Lymphocytes % 21 % Monocytes % 1 % Neutrophils # (Manual) 4.4 TH/MM3 Metamyelocytes 1 % Differential Comment FINAL DIFF MANUAL Platelet Estimate NORMAL Platelet Morphology Comment NORMAL Red Cell Morphology Comment NORMAL Sodium Level 138 MEQ/L Potassium Level 4.0 MEQ/L Chloride Level 103 MEQ/L Carbon Dioxide Level 25.2 MEQ/L Anion Gap 10 MEQ/L Blood Urea Nitrogen 20 MG/DL Creatinine 1.02 MG/DL Estimat Glomerular Filtration 76 ML/MIN Rate Random Glucose 242 MG/DL Calcium Level 10.1 MG/DL Test 10/02/16 07:34 Troponin I LESS THAN 0.02 NG/ML Imaging Last Impressions Chest X-Ray 10/01/16 1756 Signed Impressions: Service Date/Time: Saturday, October 01, 2016 18:12 - CONCLUSION: Widespread bilateral airspace opacities of both lungs have developed, most likely infectious or inflammatory. Lenin Mcneill MD Head CT 10/01/16 0000 Signed Impressions: Service Date/Time: Sunday, October 02, 2016 00:08 - CONCLUSION: Chronic sinusitis. Lagn Ambrocio MD Objective Remarks GENERAL: Well-developed well-nourished. In no acute distress. SKIN: Warm and dry. Multiple skin nodules on the upper extremities. HEENT: Normocephalic. Pupils equal and round. Mucous membranes pink and moist. No frontal or maxillary sinus TTP. CARDIOVASCULAR: Regular rate and rhythm. No murmur appreciated. RESPIRATORY: No accessory muscle use. Clear to auscultation. Breath sounds equal bilaterally. No wheezing. GASTROINTESTINAL: Abdomen soft, non-tender, nondistended. Bowel sounds x4. MUSCULOSKELETAL: No obvious deformities. No clubbing or cyanosis. No edema. NEUROLOGICAL: Awake and alert. No focal neurological deficits. Moves upper and lower extremities spontaneously. Normal speech. PSYCHIATRIC: Appropriate mood and affect; insight and judgment normal. Procedures No procedures performed. Medications and IVs Current Medications Medications (Trade) Dose Ordered Sig/Adelso Route Start Time Stop Time Status Last Admin (NS Flush) 2 ml UNSCH PRN IV FLUSH 10/01/16 20:00 (NS Flush) 2 ml BID IV FLUSH 10/01/16 21:00 10/02/16 08:42 (Tylenol) 650 mg Q4H PRN PO 10/01/16 20:00 (Zofran Inj) 4 mg Q6H PRN IVP 10/01/16 20:00 (Ambien) 5 mg HS PRN PO 10/01/16 20:00 10/02/16 01:49 (Lovenox Inj) 40 mg Q24H SQ 10/01/16 20:00 10/01/16 23:21 (Milk Of Magnesia Liq) 30 ml Q12H PRN PO 10/01/16 20:00 (Senokot) 17.2 mg Q12H PRN PO 10/01/16 20:00 (Dulcolax Supp) 10 mg DAILY PRN RECTAL 10/01/16 20:00 (Lactulose Liq) 30 ml DAILY PRN PO 10/01/16 20:00 (Fioricet 325-50-40) 1 tab Q6H PRN PO 10/01/16 23:00 10/02/16 15:37 ([place]ne Dequan [place]) 2 spray Q4H PRN EACH NARE 10/01/16 23:00 10/02/16 02:58 (Flonase Dequan Spr) 1 spray BID NASAL 10/01/16 23:00 10/02/16 08:42 (Deltasone) 20 mg BID PO 10/02/16 09:00 10/02/16 09:28 (Levaquin) 750 mg DAILY PO 10/02/16 09:00 10/02/16 09:28 Vascular Central Line Catheter: No A/P Problem List: (1) Sarcoidosis ICD Code: D86.9 Status: Acute (2) Atypical chest pain ICD Code: R07.89 Status: Acute (3) Hwanm-ph-jclzglg kidney injury ICD Code: N17.9 Status: Acute (4) Headache ICD Code: R51 Status: Resolved Assessment and Plan This is a 31 year old patient with a past medical history which includes sarcoidosis, chronic abdominal pain, ventral hernia, seizures, asthma, stomach ulcers and GERD. Patient presents to the emergency department today she reports with multiple complaints. Patient reports the biggest concern is her worsening shortness of breath. Patient reports that she has had nasal congestion and a cough productive of thick yellow phlegm associated with shortness of breath for the past 2 months. Also complains of chest tightness, bilateral lower extremities "feel weird," and headache. Sarcoidosis exacerbation Shortness of breath, improved, on room air Change IV steroids to oral prednisone Consulted pulmonology Atypical chest pain. Sounds musculoskeletal. ACS ruled out per protocol Serial troponin and serial EKG unremarkable Continuous telemetry monitoring Dehydration Reviewed: Creatinine 1.02, previously 0.82 and 05/22/16. Creatinine stable overnight. IV fluids Severe headache, suspect secondary to nasal congestion Reviewed: Head CT with chronic sinusitis, nothing acute. Fioricet prn Chronic sinusitis Wayne [place] as needed and Flonase Levaquin Outpatient ENT follow-up Right flank pain/abnormal UA Reviewed: UA with RBCs and occult blood, leukocyte esterase. Urine was not sent for culture. Afebrile with no leukocytosis. Treat for UTI and sinusitis with course of Levaquin DVT prophylaxis with Lovenox Discharge Planning Follow-up pulmonology recommendations. Possible discharge later today with Levaquin and steroids for PCP follow-up. Attending Statement Patient evaluated discussed with PA will follow specialist recommendations continue present care Gennaro Cosby Oct 02, 2016 08:56 Nicolas Campos MD Oct 02, 2016 16:52
[2016-10-02] MEDS: predniSONE 20 MG TAB PO SCH ×2 (09:28→20:12)
[2016-10-02] MEDS: LEVOFLOXACIN 750 MG TAB PO SCH (09:28)
[2016-10-02] MEDS: ACETAMIN 325 MG/BUTALBITAL 50 MG/CAFFEINE 40 MG TAB PO PRN ×2 (09:29→15:37)
--- NOTE | 2016-10-02 11:33 | EKG ---
Date Performed: 10/02/2016 Time Performed: 06:21:16 PTAGE: 31 years EKG: Sinus rhythm WITH MARKED SINUS ARRHYTHMIA BORDERLINE ECG Early repolarization. No change from the prior tracing. PREVIOUS TRACING : 10/02/2016 01.20 DOCTOR: Cong Vela Interpretating Date/Time 10/02/2016 11:32:18
--- NOTE | 2016-10-02 11:33 | EKG ---
Date Performed: 10/02/2016 Time Performed: 01:20:33 PTAGE: 31 years EKG: Sinus rhythm NORMAL ECG Early repolarization. No change from the prior tracing. PREVIOUS TRACING : 10/02/2016 01.20 DOCTOR: Cong Vela Interpretating Date/Time 10/02/2016 11:31:59
--- NOTE | 2016-10-02 11:33 | EKG ---
Date Performed: 10/01/2016 Time Performed: 18:50:29 PTAGE: 31 years EKG: Sinus rhythm NORMAL ECG Early repolarization. PREVIOUS TRACING : 03/28/2016 17.31 DOCTOR: Cong Vela Interpretating Date/Time 10/02/2016 11:31:32
[2016-10-02 11:49] VITALS: BP 162/88; PULSE 71; RESP 18; TEMP 98
[2016-10-02] MEDS ORDERED: LEVA750T9 PO (18:10)
[2016-10-02] MEDS ORDERED: FLUT50SP NASAL (18:10)
[2016-10-02] MEDS ORDERED: PRED20 PO (18:10)
[2016-10-02] MEDS: ENOXAPARIN SODIUM 40 MG/0.4 ML SYRINGE SQ SCH (20:12)
[2016-10-02] MEDS: PANTOPRAZOLE SOD 40 MG DELAYED RELEASE TAB PO SCH (20:12)
[2016-10-02 20:22] VITALS: BP 163/83; PULSE 67; RESP 18; TEMP 98.1; O2SAT 98
[2016-10-02] MEDS ORDERED: RESP: ALBUTEROL 2.5 MG/IPRATROPIUM 0.5 MG NEB (PRN) NEB (21:30)
[2016-10-02] MEDS ORDERED: ACETAMINOPHEN/HYDROcodone 325 MG/5 MG TAB PO ONE (21:30)
[2016-10-02 21:40] VITALS: O2SAT 98
--- NOTE | 2016-10-02 23:09 | RADRPT ---
EXAM DATE/TIME: 10/02/2016 22:35 [facility] COMPARISON: CT ABDOMEN & PELVIS W CONTRAST, April 25, 2014, 20:33. CT ABDOMEN & PELVIS W CONTRAST, February, 16:06. CHEST PA & LAT, October 01, 2016, 18:12. INDICATIONS : Sarcoidosis, SOB, chest pain. RADIATION DOSE: 10.11 CTDIvol (mGy) MEDICAL HISTORY : Hypertension. Seizures. Renal failure, acute. SURGICAL HISTORY : None. ENCOUNTER: Initial ACUITY: 1 day PAIN SCALE: 6/10 LOCATION: chest TECHNIQUE: Volumetric scanning of the chest was performed. Using automated exposure control and adjustment of t he mA and/or kV according to patient size, radiation dose was kept as low as reasonably achievable to obtain optimal diagnostic quality images. FINDINGS: Reticular-nodular lung disease is seen bilaterally chronic in nature could be seen with sarcoidosis, however it is nonspecific. There is an approximate 2.0 x 0.7 cm soft tissue density underneath the xi phoid towards the left side adjacent to the epicardium may be a lymph node present on the prior CT ab domen from 2012, however it measured 1 cm at that time and it measured [address] abdomen from . There is no pleural effusion. There are lymph nodes within the mediastinum and bilateral hilum th e largest one measures 2.7 cm in size in the subcarinal area and this lymph node measured almost 4 cm measured in the same dimension on the CT examination from 2014. The patient prior chest CT examinati ons are archived and therefore cannot be compared at this time. CONCLUSION: There is a lymph node underneath the xiphoid process which is smaller since 2014, how ever larger since 2012 and there are other lymph nodes within the mediastinum that compared to the pr ior CT examinations of the abdomen appears smaller could be seen with waxing and waning sarcoidosis. Reticular interstitial process in the lungs also could be seen with sarcoidosis, however direct celina rison to the patient's prior chest CT cannot be performed at this time since they are archived. The r eticular interstitial process in the lung bases however have not significantly changed compared to th e CT abdomen from 2014. Lang Ambrocio MD on October 02, 2016 at 22:51 Board Certified Radiologist. This report was verified electronically.
[2016-10-02 23:27] VITALS: BP 109/53; PULSE 86; RESP 18; TEMP 97.4; O2SAT 98
[2016-10-03 04:00] VITALS: BP 121/68; PULSE 77; RESP 18; TEMP 98; O2SAT 94
--- NOTE | 2016-10-03 07:06 | MB ---
cc: SARAI TOTH DATE OF CONSULTATION 10/02/2016 REQUESTING PHYSICIAN Gennaro Cosby REASON FOR CONSULTATION Evaluation for shortness of breath and lung infiltrate PRESENT ILLNESS Ms. Woods is a 31-year-old female with a history of sarcoidosis. The patient had a liver and peritoneal biopsy and was told that she has sarcoidosis and she has non-necrotizing granuloma. She has not been visiting her doctor. She is complaining of shortness of breath with any activity. 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 Now her shortness of breath is getting worse and decided to come to the emergency room. She has cough mostly dry with sputum production. No fever or chills. No chest pain. She does complain of palpitations off and on. With these symptoms, she came to the hospital. She had a chest x-ray done which shows widespread bilateral air space opacity, likely infectious or inflammatory in nature. Her CBC showed a WBC count of 5.6, hemoglobin 13.3, hematocrit 42.0, MCV 91, platelet count 191. Sodium 138, potassium 4.0, chloride 103, pCO2 25, BUN 20, creatinine 1.0, calcium 10.1. PAST MEDICAL HISTORY Significant for a history of: 1. Sarcoidosis 2. Hypertension 3. Bilateral oophorectomy 4. The patient states that she was in a coma for four months because she had ovarian teratoma. 5. History of asthma. 6. Stomach ulcer 7. Seizure disorder 8. Ventral hernia MEDICATIONS She is currently takin. Prednisone 20 mg twice a day 2. Levaquin 750 mg a day 3. Fioricet for pain 4. Flonase nasal spray 5. Ambien 5 mg at nighttime 6. Lovenox 40 mg a day ALLERGIES SHE IS ALLERGIC TO LANOXIN, PENICILLIN, SUMATRIPTAN, AND TRAMADOL. SOCIAL HISTORY She is single. She smokes marijuana three times a day. No alcohol use. 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 FAMILY HISTORY She is single and has three children. REVIEW OF SYSTEMS Normally she is up, around and active. She has been complaining of shortness of breath. No coughing or PND. No DVT or pulmonary embolism. PHYSICAL EXAM This is a well-built, well-nourished female mildly short of breath. VITAL SIGNS: Blood pressure 162/88, heart rate 71, respiration 18, temperature 98. HEENT: Pupils are equal and reactive to light. Oral mucosa and nasal mucosa normal. NECK: Supple. No JVD. Chest: Bilateral scattered rales. CARDIOVASCULAR: S1 and S2 normal. ABDOMEN: Benign. EXTREMITIES: No edema. IMPRESSION 1. Bilateral diffuse lung infiltrate possible sarcoidosis or other inflammatory process. 2. Dyspnea has improved. 3. GERD 4. Hypertension 5. History of ovarian teratoma. 6. History of seizure disorder. 7. Bronchial asthma. PLAN She is on p.o. steroid, prednisone [address] scan of the chest without contrast and pulmonary function study. I will also start her on Zantac 150 mg a day. She is weaned down to nasal cannula. Continue subcu Lovenox for DVT prophylaxis. Further treatment will depend upon her course in the hospital. Thank you, Gennaro Cosby, for this consult. MD MARIO Staley/KADEN /6:51 PM /6:56 AM DANNIE
[2016-10-03 07:21] VITALS: BP 114/64; PULSE 66; RESP 18; TEMP 98; O2SAT 96
[2016-10-03] MEDS ORDERED: KETOROLAC TROMETHAMINE 30 MG/ML (IVP) VIAL IV PUSH PRN (08:00)
[2016-10-03] MEDS ORDERED: ACETAMINOPHEN/HYDROcodone 325 MG/5 MG TAB PO PRN (08:45)
--- NOTE | 2016-10-03 08:45 | HHI.PR ---
Subjective Remarks Follow-up for shortness of breath and sarcoidosis. The patient complains of intermittent "liver" pain. She has been told in the past that she has an enlarged liver. She reports her shortness of breath has improved. She continues to get headaches, states she is followed up with neurology in the past for this. She does have multiple adverse reactions to medicines for headache including Imitrex, tramadol, and Toradol. She understands that she may need to follow-up outpatient for further pain management. The patient would like to go home today if possible. Objective Vitals Vital Signs Date Time Temp Pulse Resp B/P Pulse Ox O2 Delivery O2 Flow Rate FiO2 10/03/16 07:21 98.0 66 18 114/64 96 10/03/16 04:00 98.0 77 18 121/68 94 10/02/16 23:27 97.4 86 18 109/53 98 10/02/16 22:48 16 10/02/16 21:40 98 21 10/02/16 21:14 16 10/02/16 20:22 98.1 67 18 163/83 98 10/02/16 16:37 18 10/02/16 11:49 98.0 71 18 162/88 I/O 10/02/16 10/02/16 10/02/16 10/03/16 10/03/16 10/03/16 07:00 15:00 23:00 07:00 15:00 23:00 Intake Total 480 ml Balance 480 ml Intake Oral 480 ml # Voids 2 2 Result Diagram: 10/02/16 0124 10/02/16 0128 Imaging Last Impressions Chest CT 10/02/16 0000 Signed Impressions: Service Date/Time: Sunday, October 02, 2016 22:35 - CONCLUSION: There is a lymph node underneath the xiphoid process which is smaller since 2014, however larger since 2012 and there are other lymph nodes within the mediastinum that compared to the prior CT examinations of the abdomen appears smaller could be seen with waxing and waning sarcoidosis. Reticular interstitial process in the lungs also could be seen with sarcoidosis, however direct comparison to the patient's prior chest CT cannot be performed at this time since they are archived. The reticular interstitial process in the lung bases however have not significantly changed compared to the CT abdomen from 2014. Lang Ambrocio MD Chest X-Ray 10/01/16 4285 Signed Impressions: Service Date/Time: Saturday, October 01, 2016 18:12 - CONCLUSION: Widespread bilateral airspace opacities of both lungs have developed, most likely infectious or inflammatory. Lenin Mcneill MD Head CT 10/01/16 0000 Signed Impressions: Service Date/Time: Sunday, October 02, 2016 00:08 - CONCLUSION: Chronic sinusitis. Lang Ambrocio MD Objective Remarks GENERAL: Well-developed well-nourished. In no acute distress. SKIN: Warm and dry. Multiple skin nodules on the upper extremities. HEENT: Normocephalic. Pupils equal and round. Mucous membranes pink and moist. CARDIOVASCULAR: Regular rate and rhythm. No murmur appreciated. RESPIRATORY: No accessory muscle use. Clear to auscultation. Breath sounds equal bilaterally. No wheezing. GASTROINTESTINAL: Abdomen soft, non-tender, nondistended. Bowel sounds x4. MUSCULOSKELETAL: No obvious deformities. No clubbing or cyanosis. No edema. NEUROLOGICAL: Awake and alert. No focal neurological deficits. Moves upper and lower extremities spontaneously. Normal speech. PSYCHIATRIC: Appropriate mood and affect; insight and judgment normal. Procedures No procedures performed. A/P Problem List: (1) Sarcoidosis ICD Code: D86.9 Status: Acute (2) Atypical chest pain ICD Code: R07.89 Status: Acute (3) [id number] kidney injury ICD Code: N17.9 Status: Acute (4) Headache ICD Code: R51 Status: Resolved Assessment and Plan This is a 31 year old patient with a past medical history which includes sarcoidosis, chronic abdominal pain, ventral hernia, seizures, asthma, stomach ulcers and GERD. Patient presents to the emergency department today she reports with multiple complaints. Patient reports the biggest concern is her worsening shortness of breath. Patient reports that she has had nasal congestion and a cough productive of thick yellow phlegm associated with shortness of breath for the past 2 months. Also complains of chest tightness, bilateral lower extremities "feel weird," and headache. Sarcoidosis exacerbation Shortness of breath, improved, on room air likely consistent with sarcoidosis Reviewed: Chest CT with multiple findings Continue course of oral prednisone Consulted pulmonology who order chest CT and PFTs Atypical chest pain. Sounds musculoskeletal. ACS ruled out per protocol Serial troponin and serial EKG unremarkable Continuous telemetry monitoring Dehydration Reviewed: Creatinine 1.02, previously 0.82 and 05/22/16. Creatinine stable overnight. IV fluids Severe headache, suspect secondary to nasal congestion Reviewed: Head CT with chronic sinusitis, nothing acute. Fioricet and [place] prn Chronic sinusitis [place] as needed and Flonase Levaquin Outpatient ENT follow-up Abnormal UA Reviewed: UA with RBCs and occult blood, leukocyte esterase. Urine was not sent for culture. Afebrile with no leukocytosis. Treat for UTI and sinusitis with course of Levaquin RUQ/flank pain: Possibly due to no hepatosplenomegaly or abnormal UA as above. Reviewed: Previous abdominal imaging has shown mildly enlarged liver and spleen consistent with sarcoidosis. Liver enzymes are mildly elevated Continue antibiotics for UTI as above Check liver ultrasound to assess for stability Follow up with GI as outpatient DVT prophylaxis with Lovenox Discharge Planning Follow-up pulmonology recommendations and results a liver ultrasound. Possible discharge later today with Levaquin and steroids for PCP follow-up. 1100 liver ultrasound with stable liver findings consistent with sarcoidosis when compared to previous. Recommended patient follow-up with gastrology as outpatient. Discussed CT findings with pulmonology, Dr. De La Cruz, who stated that if the patient is no longer requiring oxygen, is clear from his perspective for discharge and outpatient follow-up. Plan of care discussed with the patient who is agreeable and happy to be going home today. Attending Statement Discussed early in am with PA will discharge today. follow recommendations as per field service specialist. Gennaro Cosby Oct 03, 2016 08:44 Nicolas Campos MD Oct 03, 2016 17:16
[2016-10-03] MEDS: FLUTICASONE PROPIONATE 50 MCG/ACT 16 GM NASAL SPRAY NASAL SCH (09:53)
[2016-10-03] MEDS: PANTOPRAZOLE SOD 40 MG DELAYED RELEASE TAB PO SCH (09:54)
[2016-10-03] MEDS: predniSONE 20 MG TAB PO SCH (09:54)
[2016-10-03] MEDS: LEVOFLOXACIN 750 MG TAB PO SCH (09:54)
[2016-10-03] MEDS: SODIUM CHLORIDE 0.9% FLUSH 10 ML FLUSH IV FLUSH SCH (09:54)
--- NOTE | 2016-10-03 10:37 | RADRPT ---
EXAM DATE/TIME: 10/03/2016 08:58 [facility] COMPARISON: CT ABDOMEN & PELVIS W CONTRAST, April 25, 2014, 20:33. INDICATIONS : Abnormal labs. MEDICAL HISTORY : Gastroesophageal reflux disease. Seizures. Hypertension. Asthma. Head trauma. Dyspnea. Stomach ul cer. Teratoma ovary. Renal failure. Kidney stones. Depression. Substance use. SOB. Sarcoidosis. SURGICAL HISTORY : Umbilical hernia repair. Bilateral oophorectomy. ENCOUNTER: Initial ACUITY: 1 day PAIN SCORE: 4/10 LOCATION: Bilateral upper quadrant MEASUREMENTS: LIVER: 20.7 cm length COMMON DUCT: 2 mm RIGHT KIDNEY: 10.5 x 4.9 x 4.1 cm SPLEEN: 10.6 cm length FINDINGS: LIVER: Liver demonstrates diffusely decreased and heterogeneous echogenicity similar to prior CT examination . No evidence for volume loss or hepatic ductal dilatation. COMMON DUCT: No intraluminal mass or stone visualized. GALLBLADDER: Multiple non-mobile echogenic foci in the gallbladder with the largest measuring 4 mm near the gallbl adder neck. Gallbladder is otherwise unremarkable without significant wall thickening, pericholecysti c fluid, or sonographic Monteiro sign. PANCREAS: Pancreatic tail is obscured secondary to overlying bowel gas. Visualized portions of the pancreas are otherwise unremarkable. RIGHT KIDNEY: No hydronephrosis, stone or mass. SPLEEN: No focal lesion. Not enlarged. CONCLUSION: 1. Redemonstration of diffusely decreased hepatic echogenicity with diffuse heterogeneity similar to prior CT examinations. This is consistent with previous differential considerations to include sarcoi dosis. 2. Small non-mobile echogenic foci in the gallbladder measuring up to 4 mm consistent with gallbladde r polyps versus adherent stones. Gallbladder is otherwise unremarkable and there is no evidence for b iliary obstruction. Brad Oakes MD on October 03, 2016 at 10:21 Board Certified Radiologist. This report was verified electronically.
[2016-10-03] MEDS ORDERED: ALBUAER3 INH (11:33)
[2016-10-03] MEDS ORDERED: ENOXAPARIN SODIUM 40 MG/0.4 ML SYRINGE SQ SCH (22:00)
== END 2016-10-03 12:23 | disposition home or self-care (01) ==
LOC: NEPE 17:22 → NEDA 19:14 → NEPHCDU 21:31
PROVIDERS: ADMIT Internal Medicine; ATTEND Internal Medicine
DX: D86.9 Sarcoidosis, unspecified (principal); R07.89 Other chest pain; E86.0 Dehydration; N17.9 Acute kidney failure, unspecified; N18.9 Chronic kidney disease, unspecified; R06.02 Shortness of breath; R00.2 Palpitations; K21.9 Gastro-esophageal reflux disease without esophagitis; R91.8 Other nonspecific abnormal finding of lung field; I12.9 Hypertensive chronic kidney disease with stage 1 through stage 4 chronic kidney disease, or unspecified chronic kidney disease; J45.909 Unspecified asthma, uncomplicated; G40.909 Epilepsy, unspecified, not intractable, without status epilepticus; K43.9 Ventral hernia without obstruction or gangrene; K25.9 Gastric ulcer, unspecified as acute or chronic, without hemorrhage or perforation
CPT/HCPCS: 70450; 71020; 71250; 76705; 80048; 80053; 81001; 82550; 82652; 84484; 85007; 85025; 85027; 85652; 93005; 94664; 96361; 96372; 96374; 96376; 97161; 99285; G0378; G8987; G8988; G8989; J1650; J2270; J2920; J2930; J7030; J7512

== ENCOUNTER 2017-06-14 18:43 | Observation (INO) | payer MEDICAID ==
[~2017-06-14] VITALS: Ht 167.6 cm; Wt 95.0 kg
[~2017-06-14 18:43] MED LIST changes: +ALBUAER3 INH; +FLUT50SP NASAL; +LEVA750T9 PO; -PHEN1TAB84 PO; +PRED20 PO
[2017-06-14 18:45] VITALS: BP 152/91; PULSE 97; RESP 18; TEMP 97.5; O2SAT 98
--- NOTE | 2017-06-14 22:09 | PD ---
HPI Chief Complaint: Abdominal Pain Time Seen by Provider: 21:33 Travel History International Travel<30 days: No Contact w/Intl Traveler<30days: No Traveled to known affect area: No History of Present Illness HPI 31yo F with PMH of sarcoidosis on chronic prednisone, teratoma s/p bilateral oopherectomy here multiple complaints. Pt said she has been feeling sob for 1 week. Always has chest tightness which is not new. 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 Pt also with left lower abdominal pain for 1 day. Said it is cramping and radiates down left leg. Denies any fever, n/v, dysuria , hematuria, vaginal bleeding or discharge, focal weakness or numbness, fall. PFSH Past Medical History Arthritis: No Asthma: Yes Autoimmune Disease: No Blood Disorders: No Anxiety: Yes Depression: Yes Heart Rhythm Problems: No Cancer: No Cardiovascular Problems: No High Cholesterol: No Chemotherapy: No Chest Pain: No Congestive Heart Failure: No COPD: No Cerebrovascular Accident: No Diabetes: No Diminished Hearing: No Endocrine: No Gastrointestinal Disorders: Yes (VENTRICLE HERNIA) GERD: Yes Genitourinary: Yes Headaches: No Hiatal Hernia: No Hypertension: Yes Immune Disorder: No Implanted Vascular Access Dvce: No Kidney Stones: Yes Musculoskeletal: Yes Neurologic: Yes (IN A COMA IN 2011) Psychiatric: Yes Reproductive: Yes (teratoma of the ovary) Respiratory: Yes (asthma) Immunizations Current: Yes Migraines: No Myocardial Infarction: No Radiation Therapy: No Renal Failure: Yes Seizures: Yes Sleep Apnea: No Thyroid Disease: No Ulcer: Yes (stomach) Tetanus Vaccination: > 5 Years Influenza Vaccination: No ?: Unknown Menopausal: No : 5 Para: 3 Miscarriage: 1 : 1 Ovarian Cysts: Yes Past Surgical History Abdominal Surgery: Yes (UMBILICAL HERNIA REPAIR) AICD: No Arteriovenous Shunt: No Cardiac Surgery: No Ear Surgery: No Endocrine Surgery: No Eye Surgery: No Genitourinary Surgery: No Gynecologic Surgery: Yes (BILAT OOPHORECTOMY) Insulin Pump: No Joint Replacement: No Neurologic Surgery: No Oral Surgery: No Pacemaker: No Thoracic Surgery: No Other Surgery: Yes (ovary removed) Social History Alcohol Use: No Tobacco Use: No Substance Use: Yes (MARIJUANA LAST WEEK) Allergies-Medications (Allergen,Severity, Reaction): Coded Allergies: penicillin G (Unverified Allergy, Severe, UNKNOWN, 06/14/17) tramadol (Unverified Allergy, Severe, Anaphylaxis, 06/14/17) sumatriptan (Unverified Allergy, Intermediate, 06/14/17) increased headache amoxicillin (Unverified Allergy, Unknown, 06/14/17) Reported Meds & Prescriptions Reported Meds & Active Scripts Active Proair Hfa 8.5 GM Inh (Albuterol Sulfate) 90 Mcg/Act Aer 2 Puff INH Q4-6H PRN 108 mcg/actuation Prednisone 20 Mg Tab 20 Mg PO BID Review of Systems Except as stated in HPI: all other systems reviewed are Neg Physical Exam Narrative GENERAL: 31yo F in mild distress. SKIN: Focused skin assessment warm/dry. HEAD: Atraumatic. Normocephalic. EYES: Pupils equal and round. No scleral icterus. No injection or drainage. ENT: No nasal bleeding or discharge. Mucous membranes pink and moist. NECK: Trachea midline. No JVD. CARDIOVASCULAR: Regular rate and rhythm. No murmur appreciated. RESPIRATORY: No accessory muscle use. Clear to auscultation. Breath sounds equal bilaterally. GASTROINTESTINAL: Abdomen soft, +TTP LLQ. No rebound tenderness or guarding. No RLQ ttp. MUSCULOSKELETAL: No obvious deformities. No clubbing. No cyanosis. No edema. NEUROLOGICAL: Awake and alert. No obvious cranial nerve deficits. Motor grossly within normal limits in all extremities. Sensation equal in all extremities. Normal speech. PSYCHIATRIC: Appropriate mood and affect; insight and judgment normal. Data Data Last Documented VS Vital Signs Date Time Temp Pulse Resp B/P (MAP) Pulse Ox O2 Delivery O2 Flow Rate FiO2 06/14/17 18:45 97.5 97 18 152/91 (111) 98 Orders Orders Complete Blood Count With Diff (06/14/17 21:59) Comprehensive Metabolic Panel (06/14/17 21:59) Lipase (06/14/17 21:59) Urinalysis - C+S If Indicated (06/14/17 21:59) Ct Abd/Pel W Iv Contrast(Rout) (06/14/17 21:59) Electrocardiogram (06/14/17 21:59) Ed Urine Pregnancytest Poc (06/14/17 21:59) Troponin I (06/14/17 21:59) Chest, Single Ap (06/14/17 ) Ketorolac Inj (Toradol Inj) (06/14/17 22:15) Methylprednisolone So Succ Inj (Solumedr (06/14/17 23:30) Albuterol-Ipratropium Neb (Duoneb Neb) (06/14/17 23:30) Morphine Inj (Morphine Inj) (06/15/17 00:00) Azithromycin (Zithromax) (06/15/17 00:00) Iohexol 350 Inj (Omnipaque 350 Inj) (06/15/17 00:22) Labs Laboratory Tests Test 06/14/17 23:10 White Blood Count 6.3 TH/MM3 Red Blood Count 4.43 MIL/MM3 Hemoglobin 13.5 GM/DL Hematocrit 39.8 % Mean Corpuscular Volume 89.9 FL Mean Corpuscular Hemoglobin 30.6 PG Mean Corpuscular Hemoglobin Concent 34.0 % Red Cell Distribution Width 14.0 % Platelet Count 298 TH/MM3 Mean Platelet Volume 8.4 FL Neutrophils (%) (Auto) 74.4 % Lymphocytes (%) (Auto) 12.5 % Monocytes (%) (Auto) 10.9 % Eosinophils (%) (Auto) 1.8 % Basophils (%) (Auto) 0.4 % Neutrophils # (Auto) 4.7 TH/MM3 Lymphocytes # (Auto) 0.8 TH/MM3 Monocytes # (Auto) 0.7 TH/MM3 Eosinophils # (Auto) 0.1 TH/MM3 Basophils # (Auto) 0.0 TH/MM3 CBC Comment DIFF FINAL Differential Comment Blood Urea Nitrogen 24 MG/DL Creatinine 1.06 MG/DL Random Glucose 92 MG/DL Total Protein 8.8 GM/DL Albumin 3.5 GM/DL Calcium Level 9.6 MG/DL Alkaline Phosphatase 117 U/L Aspartate Amino Transf (AST/SGOT) 42 U/L Alanine Aminotransferase (ALT/SGPT) 67 U/L Total Bilirubin 0.5 MG/DL Sodium Level 140 MEQ/L Potassium Level 4.3 MEQ/L Chloride Level 107 MEQ/L Carbon Dioxide Level 27.0 MEQ/L Anion Gap 6 MEQ/L Estimat Glomerular Filtration Rate 72 ML/MIN Troponin I LESS THAN 0.02 NG/ML Lipase 81 U/L MDM Medical Decision Making Medical Screen Exam Complete: Yes Emergency Medical Condition: Yes Differential Diagnosis Sarcoidosis exacerbation vs. pneumonia vs. pleural effusion vs. colitis vs. UTI Narrative Course 31yo F with sarcoidosis here with c/o sob for 1 week. Also with abdominal pain that started today. Said it was the abdominal pain that brought her in but since she has been sob, also wanted to get that check out. Pt has clear lungs and saturating at 98% on RA. However, she does have history of asthma and sometimes the treatments help so will give duonebs. CXR showed mild new interstitial prominence which may reflect interstitial pneumonia in the appropriate setting. Pt has been coughing more but no fever. She is taking low dose prednisone and follows with Dr. De La Cruz. Will cover with azithromycin. Pt was admitted 09/2016 for sob and was seen by Dr. De La Cruz for bilateral diffuse lung infiltrates possible sarcoidosis or other inflammatory process. Impression is more sarcoidosis exacerbation so will give methylprednisolone 125mg IV. Labs reviewed, no leukocytosis. H/H normal. BUN/creatinine at baseline. AST/ ALT mildly elevated but is at baseline. Troponin negative. Lipase normal. Pt initially given toradol but still in pain so morphine given. CT a/p showed [id number] stone of distal left ureter causing mild obstructive uropathy. Several large cysts stones left kidney that is nonobstructing. Interstitial disease of the visualized lung appears to be slightly worse in the interim. Pt reevaluated at bedside and abdominal pain has improved with morphine. Pt is still feeling very sob and worst than her baseline. Discussed with Dr. Wolf and will admit for observation. Diagnosis Primary Impression: Sarcoidosis Additional Impression: Left ureteral stone Admitting Information Admitting Physician Requests: Observation Barbara Gabriel DO Jun 14, 2017 22:09
[2017-06-14] MEDS ORDERED: KETOROLAC TROMETHAMINE 30 MG/ML (IVP) VIAL IV PUSH ONE (22:15)
--- NOTE | 2017-06-14 22:23 | RADRPT ---
EXAM DATE/TIME: 06/14/2017 22:02 [facility] COMPARISON: CHEST SINGLE AP, May 22, 2016, 17:14. INDICATIONS : Chest pain and shortness of breath for two weeks. MEDICAL HISTORY : Gastroesophageal reflux disease. Seizures. Hypertension. Asthma. Head trauma.Dyspnea. Stomach ulcer. Teratoma ovary. Renal failure. Kidney stones. Sarcoidosis. SURGICAL HISTORY : Umbilical hernia repair. Bilateral oophorectomy. ENCOUNTER: Initial ACUITY: 2 weeks PAIN SCORE: 8/10 LOCATION: Bilateral chest FINDINGS: Mild diffuse interstitial prominence. Cardiomediastinal contours are within normal limits. Remainder of the exam is unchanged. CONCLUSION: 1. Mild new interstitial prominence which may reflect interstitial pneumonia in the appropriate clini oseas setting. Brad Oakes MD on June 14, 2017 at 22:21 Board Certified Radiologist. This report was verified electronically.
[2017-06-14] MEDS ORDERED: methylPREDNISolone SOD SUCC 125 MG/2 ML VIAL IV PUSH ONE (23:30)
[2017-06-14 23:34] LABS: AUTOMATED NEUTROPHIL # 4.7 TH/MM3 (1.8-7.7); BASOPHIL % 0.4 % (0.0-2.0); EOSINOPHIL # 0.1 TH/MM3 (0-0.4); EOSINOPHIL % 1.8 % (0.0-4.0); HEMATOCRIT 39.8 % (35.0-46.0); HEMOGLOBIN 13.5 GM/DL (11.6-15.3); LYMPH % 12.5 % (9.0-44.0); LYMPHOCYTE # 0.8 TH/MM3 (1.0-4.8); MEAN CELL VOLUME 89.9 FL (80.0-100.0); MEAN CORPUSCULAR HEMOGLOBIN 30.6 PG (27.0-34.0); MEAN PLATELET VOLUME 8.4 FL (7.0-11.0); MONO % 10.9 % (0.0-8.0); MONOCYTE # 0.7 TH/MM3 (0-0.9); NEUT % 74.4 % (16.0-70.0); PLATELET COUNT 298 TH/MM3 (150-450); RED BLOOD COUNT 4.43 MIL/MM3 (4.00-5.30); WHITE BLOOD COUNT 6.3 TH/MM3 (4.0-11.0)
[2017-06-14] MEDS: RESP: ALBUTEROL 2.5 MG/IPRATROPIUM 0.5 MG NEB (SCH) INH (23:37)
[2017-06-14 23:56] LABS: ALBUMIN 3.5 GM/DL (3.4-5.0); ALT (GPT) 67 U/L (10-53); AST (GOT) 42 U/L (15-37); BLOOD UREA NITROGEN 24 MG/DL (7-18); CALCIUM 9.6 MG/DL (8.5-10.1); CHLORIDE 107 MEQ/L (98-107); CREATININE 1.06 MG/DL (0.50-1.00); GLOMERULAR FILTRATION RATE 72 ML/MIN (>89); GLUCOSE,RANDOM 92 MG/DL (74-106); SODIUM (NA) 140 MEQ/L (136-145)
[2017-06-14 23:59] LABS: ALKALINE PHOSPHATASE 117 U/L (45-117); TOTAL BILIRUBIN ADULT 0.5 MG/DL (0.2-1.0); TOTAL PROTEIN 8.8 GM/DL (6.4-8.2); TROPONIN I LESS THAN 0.02 NG/ML (0.02-0.05)
[2017-06-15] VITALS (8 sets, daily range): BP systolic 118–147; BP diastolic 61–82; PULSE 64–91; RESP 16–21; TEMP 97.6–98.4; O2SAT 93–98
[2017-06-15] MEDS ORDERED: AZITHROMYCIN 250 MG TAB PO ONE
[2017-06-15] MEDS ORDERED: MORPHINE SULFATE 4 MG/ML INJ IV PUSH ONE
[2017-06-15] MEDS ORDERED: IOHEXOL 350 MG/ML 10 ML VIAL (for RAD DIAG) IVCONTRAST ONE (00:22)
--- NOTE | 2017-06-15 00:45 | RADRPT ---
EXAM DATE/TIME: 06/15/2017 00:19 [facility] COMPARISON: CT THORAX W/O CONTRAST, October 02, 2016, 22:35. CT ABDOMEN & PELVIS W CONTRAST, April 25, 2014, 20:3 3. INDICATIONS : Left lower abdominal pain. IV CONTRAST: 80 cc Omnipaque 350 (iohexol) IV ORAL CONTRAST: No oral contrast ingested. RADIATION DOSE: 22.61 CTDIvol (mGy) ; Patient body habitus MEDICAL HISTORY : Hypertension. Seizures. Hernia. Renal calculi. Ulcer. SURGICAL HISTORY : Umbilical hernia repair. Bilateral oophorectomy. ENCOUNTER: Initial ACUITY: 1 day PAIN SCALE: 8/10 LOCATION: Left lower quadrant abdomen TECHNIQUE: Volumetric scanning of the abdomen and pelvis was performed. Using automated exposure control and ad justment of the mA and/or kV according to patient size, radiation dose was kept as low as reasonably achievable to obtain optimal diagnostic quality images. DICOM format image data is available electro nically for review and comparison. FINDINGS: LOWER LUNGS: There is nodular thickening of the interlobular septa of both bases. LIVER: Homogeneous density without lesion. 22 cm craniocaudal. There is no dilation of the biliary tree. N o calcified gallstones. SPLEEN: Normal size without lesion. PANCREAS: Within normal limits. KIDNEYS: Contrast is in the collecting system. A 13 mm stone is suspected of the left mid zone. A 15 mm stone is present of the left lower pole. Suspected 17 mm stone of the left upper pole. There is a 5 x 7 x 5 mm stone in the distal left ureter and with associated mild hydronephrosis and hydroureter. No defin ite stone on the right. ADRENAL GLANDS: Within normal limits. VASCULAR: There is no aortic aneurysm. BOWEL/MESENTERY: The stomach, small bowel, and colon demonstrate no acute abnormality. There is no free intraperitone al air or fluid. ABDOMINAL WALL: Ventral hernia repair in the interim appears intact. RETROPERITONEUM: There is no lymphadenopathy. BLADDER: No wall thickening or mass. REPRODUCTIVE: Within normal limits. INGUINAL: There is no lymphadenopathy or hernia. MUSCULOSKELETAL: Within normal limits for patient age. CONCLUSION: 1. 5 x 7 x 5 mm stone of the distal left ureter causing mild obstructive uropathy. The stone is not c learly seen on the initial manager payer radiograph. 2. Several large cysts stones of the left kidney that appear to be nonobstructing. There is contrast being excreted by both kidneys that limits evaluation for nephrolithiasis. 3. Interim ventral hernia repair that appears intact. 4. Mild hepatomegaly, improved. Spleen size now within normal limits. 5. Interstitial disease of the visualized lung bases appears to be slightly worse in the interim. Lenin Mcneill MD on June 15, 2017 at 0:35 Board Certified Radiologist. This report was verified electronically.
[2017-06-15] MEDS ORDERED: BISACODYL 10 MG SUPP RECTAL PRN (01:15)
[2017-06-15] MEDS ORDERED: ONDANSETRON HCL 4 MG/2 ML VIAL IVP PRN (01:15)
[2017-06-15] MEDS ORDERED: LACTULOSE SYRUP 20 GM/30 ML CUP PO PRN (01:15)
[2017-06-15] MEDS ORDERED: MAGNESIUM HYDROXIDE SUSP 30 ML CUP PO PRN (01:15)
[2017-06-15] MEDS ORDERED: SENNOSIDES 8.6 MG TAB PO PRN (01:15)
[2017-06-15] MEDS ORDERED: RESP: ALBUTEROL 2.5 MG/IPRATROPIUM 0.5 MG NEB (PRN) NEB (01:15)
[2017-06-15] MEDS ORDERED: SODIUM CHLORIDE 0.9% FLUSH 10 ML FLUSH IV FLUSH PRN (01:15)
[2017-06-15] MEDS ORDERED: NALOXONE HCL 0.4 MG/ML AMP IV PUSH PRN (01:15)
[2017-06-15 01:27] LABS: BACTERIA, URINE RARE /hpf; BILIRUBIN, URINE NEG (NEG); BLOOD, URINE LARGE (NEG); CALCIUM OXALATE CRYSTALS,URINE MANY /hpf; GLUCOSE,URINE NEG (NEG); HYALINE CAST, URINE 39 /lpf (RARE); KETONE, URINE NEG (NEG); MUCUS URINE MANY /lpf (OCC); NITRITE,URINE NEG (NEG); PH, URINE 5.5 (5.0-8.5); SQUAMOUS EPITHELIAL CELL URINE 2 /hpf (0-5); URINE COLOR YELLOW (YELLW/STRAW); URINE LEUKOCYTE ESTERASE LARGE (NEG)
--- NOTE | 2017-06-15 01:55 | HHI.HP ---
HPI [facility] Primary Care Physician Nancy Boateng MD Admission Diagnosis Sarcoidosis exacerbation, left obstructive uropathy Diagnoses: Travel History International Travel<30 Days: No Contact w/Intl Traveler <30 Da: No Traveled to Known Affected Are: No History of Present Illness 31-year-old female with past medical history significant for sarcoidosis and asthma presents to the emergency department for evaluation of increasing shortness of breath and left lower quadrant abdominal pain. The patient reports she is having increasing shortness of breath from baseline for approximately one week. She follows with Dr. De La Cruz. She has been compliant with her oral steroids. Patient also complains of a one-day history of left lower quadrant abdominal/pelvic pain. She denies any associated dysuria states the pain radiates to her back and down her leg. She denies any fever/chills. Denies cough. No chest pain. No nausea/vomiting/diarrhea. Review of Systems Except as stated in HPI: all other systems reviewed are Neg Past Family Social History Past Medical History Asthma Sarcoidosis Past Surgical History Teratoma 2 Oophorectomy Lung/liver/kidney biopsy Hernia repair Reported Medications Reported Meds & Active Scripts Active Proair Hfa 8.5 GM Inh (Albuterol Sulfate) 90 Mcg/Act Aer 2 Puff INH Q4-6H PRN 108 mcg/actuation Prednisone 20 Mg Tab 20 Mg PO BID Allergies: Coded Allergies: penicillin G (Unverified Allergy, Severe, UNKNOWN, 06/14/17) tramadol (Unverified Allergy, Severe, Anaphylaxis, 06/14/17) sumatriptan (Unverified Allergy, Intermediate, 06/14/17) increased headache amoxicillin (Unverified Allergy, Unknown, 06/14/17) Family History Father with diabetes and hypertension Social History Denies tobacco and alcohol. Positive marijuana. Denies other illicit drugs. Physical Exam Vital Signs Vital Signs Date Time Temp Pulse Resp B/P (MAP) Pulse Ox O2 Delivery O2 Flow Rate FiO2 06/14/17 18:45 97.5 97 18 152/91 (111) 98 Physical Exam GENERAL: female lying in bed SKIN: No rashes, ecchymoses or lesions. Cool and dry. HEAD: Atraumatic. Normocephalic. No temporal or scalp tenderness. EYES: Pupils equal round and reactive. Extraocular motions intact. No scleral icterus. No injection or drainage. ENT: Nose without bleeding, purulent drainage or septal hematoma. Throat without erythema, tonsillar hypertrophy or exudate. Uvula midline. Airway patent. NECK: Trachea midline. No JVD or lymphadenopathy. Supple, nontender, no meningeal signs. CARDIOVASCULAR: Regular rate and rhythm without murmurs, gallops, or rubs. RESPIRATORY: Decreased air movement. No wheezes, rales, or rhonchi. GASTROINTESTINAL: Abdomen soft, nondistended. Tender to palpation in left lower quadrant. No hepato-splenomegaly, or palpable masses. No guarding. : No CVA tenderness MUSCULOSKELETAL: Extremities without clubbing, cyanosis, or edema. No joint tenderness, effusion, or edema noted. No calf tenderness. NEUROLOGICAL: Awake and alert. Cranial nerves II through XII intact. Motor and sensory grossly within normal limits. Normal speech. Laboratory Laboratory Tests Test 06/14/17 23:10 06/15/17 00:37 White Blood Count 6.3 Red Blood Count 4.43 Hemoglobin 13.5 Hematocrit 39.8 Mean Corpuscular Volume 89.9 Mean Corpuscular Hemoglobin 30.6 Mean Corpuscular Hemoglobin Concent 34.0 Red Cell Distribution Width 14.0 Platelet Count 298 Mean Platelet Volume 8.4 Neutrophils (%) (Auto) 74.4 Lymphocytes (%) (Auto) 12.5 Monocytes (%) (Auto) 10.9 Eosinophils (%) (Auto) 1.8 Basophils (%) (Auto) 0.4 Neutrophils # (Auto) 4.7 Lymphocytes # (Auto) 0.8 Monocytes # (Auto) 0.7 Eosinophils # (Auto) 0.1 Basophils # (Auto) 0.0 CBC Comment DIFF FINAL Differential Comment Blood Urea Nitrogen 24 Creatinine 1.06 Random Glucose 92 Total Protein 8.8 Albumin 3.5 Calcium Level 9.6 Alkaline Phosphatase 117 Aspartate Amino Transf (AST/SGOT) 42 Alanine Aminotransferase (ALT/SGPT) 67 Total Bilirubin 0.5 Sodium Level 140 Potassium Level 4.3 Chloride Level 107 Carbon Dioxide Level 27.0 Anion Gap 6 Estimat Glomerular Filtration Rate 72 Troponin I LESS THAN 0.02 Lipase 81 Urine Color YELLOW Urine Turbidity HAZY Urine pH 5.5 Urine Specific Dowell 1.024 Urine Protein 30 Urine Glucose (UA) NEG Urine Ketones NEG Urine Occult Blood LARGE Urine Nitrite NEG Urine Bilirubin NEG Urine Urobilinogen 2.0 Urine Leukocyte Esterase LARGE Urine RBC Urine WBC 60 Urine Squamous Epithelial Cells 2 Urine Calcium Oxalate Crystals MANY Urine Bacteria RARE Urine Hyaline Casts 39 Urine Mucus MANY Microscopic Urinalysis Comment CULTURE INDICATED Date/Time Source Procedure Growth Status 06/15/17 00:37 Urine Clean Catch Urine Culture Pending Received Result Diagram: 06/14/17230906/14/172309 Caprini VTE Risk Assessment Caprini VTE Risk Assessment: No/Low Risk (score <= 1) Caprini Risk Assessment Model Point Value = 1 Point Value = 2 Point Value = 3 Point Value = 5 Age 41-60 Minor surgery BMI > 25 kg/m2 Swollen legs Varicose veins or History of unexplained or recurrent spontaneous Oral contraceptives or hormone replacement Sepsis (< 1 month) Serious lung disease, including pneumonia (< 1 month) Abnormal pulmonary function Acute myocardial infarction Congestive heart failure (< 1 month) History of inflammatory bowel disease Medical patient at bed rest Age 61-74 Arthroscopic surgery Major open surgery (> 45 min) Laparoscopic surgery (> 45 min) Malignancy Confined to bed (> 72 hours) Immobilizing plaster cast Central venous access Age >= 75 History of VTE Family history of VTE Factor V Leiden Prothrombin [id number] Lupus anticoagulant Anticardiolipin antibodies Elevated serum homocysteine Heparin-induced thrombocytopenia Other congenital or acquired thrombophilia Stroke (< 1 month) Elective arthroplasty Hip, pelvis, or leg fracture Acute spinal cord injury (< 1 month) Prophylaxis Regimen Total Risk Factor Score Risk Level Prophylaxis Regimen 0-1 Low Early ambulation 2 Moderate Order ONE of the following: *Sequential Compression Device (SCD) *Heparin 5000 units SQ BID 3-4 Higher Order ONE of the following medications: *Heparin 5000 units SQ TID *Enoxaparin/Lovenox 40 mg SQ daily (WT < 150 kg, CrCl > 30 mL/min) *Enoxaparin/Lovenox 30 mg SQ daily (WT < 150 kg, CrCl > 10-29 mL/min) *Enoxaparin/Lovenox 30 mg SQ BID (WT < 150 kg, CrCl > 30 mL/min) AND/OR *Sequential Compression Device (SCD) 5 or more Highest Order ONE of the following medications: *Heparin 5000 units SQ TID (Preferred with Epidurals) *Enoxaparin/Lovenox 40 mg SQ daily (WT < 150 kg, CrCl > 30 mL/min) *Enoxaparin/Lovenox 30 mg SQ daily (WT < 150 kg, CrCl > 10-29 mL/min) *Enoxaparin/Lovenox 30 mg SQ BID (WT < 150 kg, CrCl > 30 mL/min) AND *Sequential Compression Device (SCD) Assessment and Plan Assessment and Plan Assessment/plan: 1. Sarcoidosis/shortness of breath/asthma Chest x-ray significant for mild interstitial prominence, personally reviewed CT of the abdomen and pelvis showed interstitial disease of the visualized lung bases worse than previous Patient without white count, afebrile and no cough - unlikely pneumonia given this clinical setting IV steroids Rose Consulted patient's mining technician, Dr. De La Cruz, appreciate recommendations 2. Ureteral stone/UTI CT of the abdomen/pelvis 5 x 7 x 5 mm stone of the distal left ureter causing mild obstructive uropathy Creatinine 1.06, at baseline UA consistent with UTI Urine culture pending Rocephin Urology consulted, appreciate assistance FEN Regular diet Electrolytes: monitor and replete prn Ambulation Serena Wolf MD Jun 15, 2017 01:55
[2017-06-15] MEDS: cefTRIAXone INJ 1,000 MG in SODIUM CHLORIDE 0.9% INJ 100 ML IV SCH (02:29)
[2017-06-15] MEDS: MORPHINE SULFATE 2 MG/ML INJ IV PUSH PRN ×3 (04:58→18:17)
[2017-06-15] MEDS: methylPREDNISolone SOD SUCC 40 MG/1 ML VIAL IV PUSH SCH ×3 (04:59→20:11)
[2017-06-15] MEDS: DOCUSATE SODIUM 50 MG/SENNA 8.6 MG TAB PO SCH ×2 (08:57→20:12)
[2017-06-15] MEDS: SODIUM CHLORIDE 0.9% FLUSH 10 ML FLUSH IV FLUSH SCH ×2 (08:57→20:12)
--- NOTE | 2017-06-15 13:25 | HHI.PR ---
Subjective Remarks Follow up for sarcoidosis/asthma flare, and ureteral stone. The patient reports her breathing is better today. Denies any significant shortness of breath or cough. Has an occasional wheezing. Denies chest pain. O2 sat stable at 98% on room air. She does report continued LLQ abdominal pain with radiation into the left groin and upper thigh. Denies fevers/chills. Denies dysuria. She states she has pressure prior to urination however gets some pain relief after urination. Denies any posterior left flank pain. Denies any hematuria. She has no other medical complaints at this time. She wants to go home. Objective Vitals Vital Signs Date Time Temp Pulse Resp B/P (MAP) Pulse Ox O2 Delivery O2 Flow Rate FiO2 06/15/17 12:01 97.7 84 21 130/75 (93) 97 06/15/17 07:42 98.4 64 21 134/75 (94) 95 06/15/17 02:56 98.4 69 16 118/75 (89) 97 06/15/17 02:53 06/15/17 02:44 97 06/15/17 02:07 91 17 147/82 (103) 97 Room Air 06/14/17 18:45 97.5 97 18 152/91 (111) 98 I/O 06/14/17 06/14/17 06/14/17 06/15/17 06/15/17 06/15/17 06:59 14:59 22:59 06:59 14:59 22:59 Intake Total 800 ml Balance 800 ml Intake Oral 800 ml # Voids 1 Result Diagram: 06/14/17230906/14/172309 Imaging Last Impressions Abdomen/Pelvis CT 06/14/172158 Signed Impressions: Service Date/Time: Thursday, June 15, 2017 00:19 - CONCLUSION: 1. 5 x 7 x 5 mm stone of the distal left ureter causing mild obstructive uropathy. The stone is not clearly seen on the initial ticket collector radiograph. 2. Several large cysts stones of the left kidney that appear to be nonobstructing. There is contrast being excreted by both kidneys that limits evaluation for nephrolithiasis. 3. Interim ventral hernia repair that appears intact. 4. Mild hepatomegaly, improved. Spleen size now within normal limits. 5. Interstitial disease of the visualized lung bases appears to be slightly worse in the interim. Lenin Mcneill MD Chest X-Ray 06/14/17 0000 Signed Impressions: Service Date/Time: May 22:02 - CONCLUSION: 1. Mild new interstitial prominence which may reflect interstitial pneumonia in the appropriate clinical setting. Brad Oakes MD Objective Remarks GENERAL: Well-nourished, well-developed pleasant female patient in [facility]. SKIN: Warm and dry. No rash. HEENT: Normocephalic. Atraumatic.Pupils equal and round. Mucous membranes pink and moist. CARDIOVASCULAR: Regular rate and rhythm. S1, S2 noted. No murmur appreciated. RESPIRATORY: No accessory muscle use. Clear to auscultation. Breath sounds equal bilaterally. GASTROINTESTINAL: Abdomen soft, nondistended. Mild LLQ TTP. Normoactive bowel sounds x4. MUSCULOSKELETAL: No obvious deformities. Extremities without clubbing, cyanosis , or edema. No CVA tenderness. NEUROLOGICAL: Awake and alert. No obvious cranial nerve deficits. Motor grossly within normal limits. Normal speech. PSYCHIATRIC: Appropriate mood and affect; insight and judgment normal. Medications and IVs Current Medications Medications (Trade) Dose Ordered Sig/Adelso Route Start Time Stop Time Status Last Admin (NS Flush) 2 ml UNSCH PRN IV FLUSH 06/15/17 01:15 (NS Flush) 2 ml BID IV FLUSH 06/15/17 09:00 06/15/17 08:57 (Zofran Inj) 4 mg Q6H PRN IVP 06/15/17 01:15 (Narcan Inj) 0.4 mg UNSCH PRN IV PUSH 06/15/17 01:15 (Caroline-Colace) 1 tab BID PO 06/15/17 09:00 (Milk Of Magnesia Liq) 30 ml Q12H PRN PO 06/15/17 01:15 (Senokot) 17.2 mg Q12H PRN PO 06/15/17 01:15 (Dulcolax Supp) 10 mg DAILY PRN RECTAL 06/15/17 01:15 (Lactulose Liq) 30 ml DAILY PRN PO 06/15/17 01:15 (SoluMEDROL INJ) 40 mg Q8HR IV PUSH 06/15/17 06:00 06/15/17 13:57 (Duoneb Neb) 1 ampule Q4HR NEB PRN NEB 06/15/17 01:15 06/15/17 16:08 (Morphine Inj) 2 mg Q4H PRN IV PUSH 06/15/17 01:15 06/15/17 12:45 Ceftriaxone Sodium 1000 mg/ Sodium Chloride 100 ml @ 200 mls/hr Q24H IV 06/15/17 02:00 06/15/17 02:29 A/P Assessment and Plan 31-year-old female with past medical history significant for sarcoidosis and asthma presents to the emergency department for evaluation of increasing shortness of breath and left lower quadrant abdominal pain. Sarcoidosis/Asthma Exacerbation: patient presents with SOB/wheezing. Afebrile, no leukocytosis, no sepsis, no cough, therefore unlikely pneumonia. -Chest x-ray significant for mild interstitial prominence, images reviewed -CT of the abdomen and pelvis showed interstitial disease of the visualized lung bases worse than previous -Continue steroids with IV Solumedrol 40mg q8h -Continue duonebs q8h adelso and q4h prn -Consulted patient's mushroom grower, Dr. De La Cruz, appreciate recommendations -Symptoms much improved, patient's O2 sat stable on room air Ureteral stone, UTI: UA with evidence of UTI. CT of the abdomen/pelvis 5 x 7 x 5 mm stone of the distal left ureter causing mild obstructive uropathy -Start on flomax 0.4mg daily -Continue antibiotics with IV Rocephin -Monitor urine culture -Monitor BMP, renal function currently at baseline -Consult urology, appreciate assistance DVT Prophylaxis: teds/SCDs Discharge Planning Await further recommendations from urology and pulmonology. Likely discharge tomorrow unless cleared by specialists today. Malbe Patel PA-C Jun 15, 2017 1:25 pm
--- NOTE | 2017-06-15 14:39 | EKG ---
Date Performed: 06/14/2017 Time Performed: 23:11:44 PTAGE: 31 years EKG: Sinus rhythm WITH SINUS ARRHYTHMIA NORMAL ECG PREVIOUS TRACING : 10/02/2016 06.21 Since the prior tracing, there has been no significant marin DOCTOR: Ana Tejeda Interpretating Date/Time 06/15/2017 14:35:59
[2017-06-15] MEDS ORDERED: TAMSULOSIN HCL 0.4 MG CAP PO ONE (17:15)
[2017-06-15] MEDS: RESP: ALBUTEROL 2.5 MG/IPRATROPIUM 0.5 MG NEB (SCH) NEB (21:12)
[2017-06-15] MEDS: ACETAMINOPHEN 325 MG TAB PO PRN (23:39)
[2017-06-16] MEDS: cefTRIAXone INJ 1,000 MG in SODIUM CHLORIDE 0.9% INJ 100 ML IV SCH (01:21)
[2017-06-16] MEDS: MORPHINE SULFATE 2 MG/ML INJ IV PUSH PRN ×4 (03:28→20:36)
[2017-06-16 04:15] VITALS: BP 122/72; PULSE 68; RESP 17; TEMP 97.9; O2SAT 94
[2017-06-16] MEDS: methylPREDNISolone SOD SUCC 40 MG/1 ML VIAL IV PUSH SCH ×3 (05:53→20:35)
[2017-06-16] MEDS: RESP: ALBUTEROL 2.5 MG/IPRATROPIUM 0.5 MG NEB (SCH) NEB ×2 (07:34→15:26)
[2017-06-16 07:36] VITALS: O2SAT 97
[2017-06-16 08:34] LABS: AUTOMATED NEUTROPHIL # 10.2 TH/MM3 (1.8-7.7); BASOPHIL % 0.1 % (0.0-2.0); HEMATOCRIT 38.5 % (35.0-46.0); HEMOGLOBIN 13.1 GM/DL (11.6-15.3); LYMPH % 9.8 % (9.0-44.0); LYMPHOCYTE # 1.2 TH/MM3 (1.0-4.8); MEAN CELL VOLUME 90.3 FL (80.0-100.0); MEAN CORPUSCULAR HEMOGLOBIN 30.6 PG (27.0-34.0); MEAN CORPUSCULAR HGB CONC 33.9 % (32.0-36.0); MEAN PLATELET VOLUME 7.7 FL (7.0-11.0); MONOCYTE # 0.6 TH/MM3 (0-0.9); NEUT % 85.1 % (16.0-70.0); PLATELET COUNT 256 TH/MM3 (150-450); RED BLOOD COUNT 4.26 MIL/MM3 (4.00-5.30); RED CELL DISTRIBUTION WIDTH 13.7 % (11.6-17.2); WHITE BLOOD COUNT 11.9 TH/MM3 (4.0-11.0)
[2017-06-16 08:45] VITALS: BP 129/77; PULSE 69; RESP 16; TEMP 98.1; O2SAT 95
[2017-06-16] MEDS: DOCUSATE SODIUM 50 MG/SENNA 8.6 MG TAB PO SCH ×2 (09:00→20:41)
[2017-06-16] MEDS: TAMSULOSIN HCL 0.4 MG CAP PO SCH (09:07)
[2017-06-16] MEDS: SODIUM CHLORIDE 0.9% FLUSH 10 ML FLUSH IV FLUSH SCH ×2 (09:07→20:40)
[2017-06-16 09:12] LABS: BICARBONATE 25.7 MEQ/L (21.0-32.0); CREATININE 0.9 MG/DL (0.50-1.00)
[2017-06-16 11:28] VITALS: BP 131/77; PULSE 86; RESP 16; TEMP 98; O2SAT 95
[2017-06-16] MEDS ORDERED: NEBULIZER1 MI1 (11:30)
--- NOTE | 2017-06-16 13:01 | HHI.PR ---
Subjective Remarks Follow up for sarcoidosis/asthma flare, and ureteral stone. The patient reports feeling better again today. She wants to go home. Shortness of breath improved. O2 sat stable on room air. Has a cough occasionally productive of clear-white sputum. Denies fevers/chills. LLQ abdominal/groin pain also improved. She states she was finally able to get some rest. Denies any dysuria. Denies any other medical complaints at this time. Objective Vitals Vital Signs Date Time Temp Pulse Resp B/P (MAP) Pulse Ox O2 Delivery O2 Flow Rate FiO2 06/16/17 11:28 98.0 86 16 131/77 (95) 95 06/16/17 09:28 22 06/16/17 08:45 98.1 69 16 129/77 (94) 95 06/16/17 07:36 97 21 06/16/17 04:15 97.9 68 17 122/72 (89) 94 06/16/17 00:39 18 06/15/17 23:54 97.8 68 17 118/70 (86) 95 06/15/17 20:08 98.0 71 17 125/70 (88) 93 06/15/17 14:51 97.6 67 20 128/61 (83) 98 I/O 06/15/17 06/15/17 06/15/17 06/16/17 06/16/17 06/16/17 07:00 15:00 23:00 07:00 15:00 23:00 Intake Total 800 ml 750 ml Balance 800 ml 750 ml Intake Oral 800 ml 750 ml # Voids 1 1 Result Diagram: 06/16/1780406/16/17804 Imaging Last Impressions Abdomen/Pelvis CT 06/14/172158 Signed Impressions: Service Date/Time: Thursday, June 15, 2017 00:19 - CONCLUSION: 1. 5 x 7 x 5 mm stone of the distal left ureter causing mild obstructive uropathy. The stone is not clearly seen on the initial pole peeler radiograph. 2. Several large cysts stones of the left kidney that appear to be nonobstructing. There is contrast being excreted by both kidneys that limits evaluation for nephrolithiasis. 3. Interim ventral hernia repair that appears intact. 4. Mild hepatomegaly, improved. Spleen size now within normal limits. 5. Interstitial disease of the visualized lung bases appears to be slightly worse in the interim. Lenin Mcneill MD Chest X-Ray 06/14/17 0000 Signed Impressions: Service Date/Time: May 22:02 - CONCLUSION: 1. Mild new interstitial prominence which may reflect interstitial pneumonia in the appropriate clinical setting. Brad Oakes MD Objective Remarks GENERAL: Well-nourished, well-developed pleasant female patient in [facility]. SKIN: Warm and dry. No rash. HEENT: Normocephalic. Atraumatic.Pupils equal and round. Mucous membranes pink and moist. CARDIOVASCULAR: Regular rate and rhythm. S1, S2 noted. No murmur appreciated. RESPIRATORY: No accessory muscle use. Clear to auscultation. Breath sounds equal bilaterally. GASTROINTESTINAL: Abdomen soft, nondistended. Mild LLQ TTP. Normoactive bowel sounds x4. MUSCULOSKELETAL: No obvious deformities. Extremities without clubbing, cyanosis , or edema. No CVA tenderness. NEUROLOGICAL: Awake and alert. No obvious cranial nerve deficits. Motor grossly within normal limits. Normal speech. PSYCHIATRIC: Appropriate mood and affect; insight and judgment normal. Medications and IVs Current Medications Medications (Trade) Dose Ordered Sig/Adelso Route Start Time Stop Time Status Last Admin (NS Flush) 2 ml UNSCH PRN IV FLUSH 06/15/17 01:15 (NS Flush) 2 ml BID IV FLUSH 06/15/17 09:00 06/16/17 09:07 (Zofran Inj) 4 mg Q6H PRN IVP 06/15/17 01:15 (Narcan Inj) 0.4 mg UNSCH PRN IV PUSH 06/15/17 01:15 (Caroline-Colace) 1 tab BID PO 06/15/17 09:00 06/15/17 20:12 (Milk Of Magnesia Liq) 30 ml Q12H PRN PO 06/15/17 01:15 (Senokot) 17.2 mg Q12H PRN PO 06/15/17 01:15 (Dulcolax Supp) 10 mg DAILY PRN RECTAL 06/15/17 01:15 (Lactulose Liq) 30 ml DAILY PRN PO 06/15/17 01:15 (SoluMEDROL INJ) 40 mg Q8HR IV PUSH 06/15/17 06:00 06/16/17 05:53 (Duoneb Neb) 1 ampule Q4HR NEB PRN NEB 06/15/17 01:15 06/15/17 16:08 (Morphine Inj) 2 mg Q4H PRN IV PUSH 06/15/17 01:15 06/16/17 09:09 Ceftriaxone Sodium 1000 mg/ Sodium Chloride 100 ml @ 200 mls/hr Q24H IV 06/15/17 02:00 06/16/17 01:21 (Duoneb Neb) 1 ampule Q8HR WHILE AWAKE NEB NEB 06/15/17 17:15 06/16/17 07:34 (Flomax) 0.4 mg DAILY PO 06/16/17 09:00 06/16/17 09:07 (Tylenol) 650 mg Q4H PRN PO 06/15/17 23:30 06/15/17 23:39 A/P Assessment and Plan 31-year-old female with past medical history significant for sarcoidosis and asthma presents to the emergency department for evaluation of increasing shortness of breath and left lower quadrant abdominal pain. Sarcoidosis/Asthma Exacerbation: patient presents with SOB/wheezing. Afebrile, no leukocytosis, no sepsis, no cough, therefore unlikely pneumonia. -Chest x-ray significant for mild interstitial prominence, images reviewed -CT of the abdomen and pelvis showed interstitial disease of the visualized lung bases worse than previous -Continue steroids with IV Solumedrol 40mg q8h -Continue duonebs q8h adelso and q4h prn -Consulted patient's lead embedded software engineer, Dr. De La Cruz, await recommendations -Symptoms much improved, patient's O2 sat stable on room air -Case management to assist with arranging nebulizer at discharge Ureteral stone, UTI: UA with evidence of UTI. CT of the abdomen/pelvis 5 x 7 x 5 mm stone of the distal left ureter causing mild obstructive uropathy -Start on flomax 0.4mg daily -Continue antibiotics with IV Rocephin -Monitor urine culture -Monitor BMP, renal function currently at baseline -Consulted urology, await recommendations DVT Prophylaxis: teds/SCDs Discharge Planning Await further recommendations from urology and pulmonology. Likely discharge today if cleared by specialists. Mable Patel PA-C Jun 16, 2017 1:01 pm
[2017-06-16] MEDS: ACETAMINOPHEN 325 MG TAB PO PRN (14:06)
[2017-06-16 15:37] VITALS: BP 130/59; PULSE 90; RESP 16; TEMP 97.8; O2SAT 95
[2017-06-16 22:56] VITALS: BP 137/90; PULSE 67; RESP 18; TEMP 98.1; O2SAT 93
[2017-06-17] MEDS: cefTRIAXone INJ 1,000 MG in SODIUM CHLORIDE 0.9% INJ 100 ML IV SCH (02:49)
[2017-06-17] MEDS: MORPHINE SULFATE 2 MG/ML INJ IV PUSH PRN ×4 (02:50→20:34)
[2017-06-17 04:04] VITALS: BP 118/62; PULSE 66; RESP 18; O2SAT 94
[2017-06-17] MEDS: methylPREDNISolone SOD SUCC 40 MG/1 ML VIAL IV PUSH SCH (06:18)
[2017-06-17] MEDS: RESP: ALBUTEROL 2.5 MG/IPRATROPIUM 0.5 MG NEB (SCH) NEB ×2 (07:52→16:10)
[2017-06-17] MEDS: SODIUM CHLORIDE 0.9% FLUSH 10 ML FLUSH IV FLUSH SCH ×2 (08:38→20:33)
[2017-06-17] MEDS: TAMSULOSIN HCL 0.4 MG CAP PO SCH (08:38)
[2017-06-17] MEDS: DOCUSATE SODIUM 50 MG/SENNA 8.6 MG TAB PO SCH ×2 (08:38→21:00)
[2017-06-17 09:35] VITALS: BP 133/70; PULSE 75; RESP 20; TEMP 96.2; O2SAT 99
--- NOTE | 2017-06-17 10:57 | HHI.PR ---
Subjective Remarks Follow up for sarcoidosis/asthma flare, and ureteral stone. The patient reports overall feeling well today. Denies any significant shortness of breath. Still with occasional cough. Denies fevers/chills. RLQ abdominal pain improving, currently rated 4/10. She is able to urinate without difficulty. Denies any flank pain. She wants to go home. Objective Vitals Vital Signs Date Time Temp Pulse Resp B/P (MAP) Pulse Ox O2 Delivery O2 Flow Rate FiO2 06/17/17 09:35 96.2 75 20 133/70 (91) 99 06/17/17 09:22 20 06/17/17 04:04 66 18 118/62 (80) 94 06/16/17 22:56 98.1 67 18 137/90 (106) 93 06/16/17 15:37 97.8 90 16 130/59 (82) 95 06/16/17 15:22 20 06/16/17 11:28 98.0 86 16 131/77 (95) 95 I/O 06/16/17 06/16/17 06/16/17 06/17/17 06/17/17 06/17/17 07:00 15:00 23:00 07:00 15:00 23:00 # Voids 1 2 Result Diagram: 06/16/17 0805 06/16/17 0805 Imaging Last Impressions Abdomen/Pelvis CT 06/14/172158 Signed Impressions: Service Date/Time: Thursday, June 15, 2017 00:19 - CONCLUSION: 1. 5 x 7 x 5 mm stone of the distal left ureter causing mild obstructive uropathy. The stone is not clearly seen on the initial photogrammetry airplane pilot radiograph. 2. Several large cysts stones of the left kidney that appear to be nonobstructing. There is contrast being excreted by both kidneys that limits evaluation for nephrolithiasis. 3. Interim ventral hernia repair that appears intact. 4. Mild hepatomegaly, improved. Spleen size now within normal limits. 5. Interstitial disease of the visualized lung bases appears to be slightly worse in the interim. Lenin Mcneill MD Chest X-Ray 06/14/17 0000 Signed Impressions: Service Date/Time: May 22:02 - CONCLUSION: 1. Mild new interstitial prominence which may reflect interstitial pneumonia in the appropriate clinical setting. Brad Oakes MD Objective Remarks GENERAL: Well-nourished, well-developed pleasant female patient in [facility]. SKIN: Warm and dry. No rash. HEENT: Normocephalic. Atraumatic.Pupils equal and round. Mucous membranes pink and moist. CARDIOVASCULAR: Regular rate and rhythm. S1, S2 noted. No murmur appreciated. RESPIRATORY: No accessory muscle use. Clear to auscultation. Breath sounds equal bilaterally. GASTROINTESTINAL: Abdomen soft, nondistended. Nontender today. Normoactive bowel sounds x4. MUSCULOSKELETAL: No obvious deformities. Extremities without clubbing, cyanosis , or edema. No CVA tenderness. NEUROLOGICAL: Awake and alert. No obvious cranial nerve deficits. Motor grossly within normal limits. Normal speech. PSYCHIATRIC: Appropriate mood and affect; insight and judgment normal. Medications and IVs Current Medications Medications (Trade) Dose Ordered Sig/Adelso Route Start Time Stop Time Status Last Admin (NS Flush) 2 ml UNSCH PRN IV FLUSH 06/15/17 01:15 (NS Flush) 2 ml BID IV FLUSH 06/15/17 09:00 06/17/17 08:38 (Zofran Inj) 4 mg Q6H PRN IVP 06/15/17 01:15 (Narcan Inj) 0.4 mg UNSCH PRN IV PUSH 06/15/17 01:15 (Caroline-Colace) 1 tab BID PO 06/15/17 09:00 06/15/17 20:12 (Milk Of Magnesia Liq) 30 ml Q12H PRN PO 06/15/17 01:15 (Senokot) 17.2 mg Q12H PRN PO 06/15/17 01:15 (Dulcolax Supp) 10 mg DAILY PRN RECTAL 06/15/17 01:15 (Lactulose Liq) 30 ml DAILY PRN PO 06/15/17 01:15 (SoluMEDROL INJ) 40 mg Q8HR IV PUSH 06/15/17 06:00 06/17/17 06:18 (Duoneb Neb) 1 ampule Q4HR NEB PRN NEB 06/15/17 01:15 06/15/17 16:08 (Morphine Inj) 2 mg Q4H PRN IV PUSH 06/15/17 01:15 06/17/17 08:42 Ceftriaxone Sodium 1000 mg/ Sodium Chloride 100 ml @ 200 mls/hr Q24H IV 06/15/17 02:00 06/17/17 02:49 (Duoneb Neb) 1 ampule Q8HR WHILE AWAKE NEB NEB 06/15/17 17:15 06/17/17 07:52 (Flomax) 0.4 mg DAILY PO 06/16/17 09:00 06/17/17 08:38 (Tylenol) 650 mg Q4H PRN PO 06/15/17 23:30 06/16/17 14:06 A/P Assessment and Plan 31-year-old female with past medical history significant for sarcoidosis and asthma presents to the emergency department for evaluation of increasing shortness of breath and left lower quadrant abdominal pain. Sarcoidosis/Asthma Exacerbation: patient presents with SOB/wheezing. Afebrile, no leukocytosis, no sepsis, no cough, therefore unlikely pneumonia. -Chest x-ray significant for mild interstitial prominence, images reviewed -CT abdomen and pelvis showed interstitial disease of the visualized lung bases worse than previous -Given steroids with IV Solumedrol 40mg q8h, will decrease to prednisone 40mg daily x5days -Continue duonebs q8h adelso and q4h prn -Consulted patient's straddle carrier operator, Dr. De La Cruz, await recommendations -Symptoms much improved, patient's O2 sat stable on room air -Case management to assist with arranging nebulizer at discharge Ureteral stone, UTI: UA with evidence of UTI. CT of the abdomen/pelvis 5 x 7 x 5 mm stone of the distal left ureter causing mild obstructive uropathy -Started on flomax 0.4mg daily -Given antibiotics with IV Rocephin x3days, will discontinue -Urine culture with mixed gram positive -Monitor BMP, renal function wnl -Consulted urology, await recommendations DVT Prophylaxis: teds/SCDs Discharge Planning Await further recommendations from urology and pulmonology. Likely discharge today if cleared by specialists. Mable Patel PA-C Jun 17, 2017 10:57 am
[2017-06-17 12:45] VITALS: BP 132/97; PULSE 66; RESP 20; TEMP 96.1; O2SAT 97
--- NOTE | 2017-06-17 13:23 | MB ---
cc: KAYLA PEDRO M.D. DATE OF CONSULTATION: 06/17/2017. DATE OF : 1985. HISTORY OF PRESENT ILLNESS: The patient is a 31-year-old female with past medical history of bronchial asthma and sarcoidosis who is being followed by Dr. De La Cruz as an outpatient. She presented to the [facility] Emergency Department on June 15 for left lower quadrant abdominal pain and shortness of breath. She had a CT scan of the abdomen and pelvis on arrival which showed a 5 x 7 x 5 mm stone in the distal left ureter causing mild obstructive uropathy. Chest x-ray on arrival showed mild new interstitial prominence. She states that she is short of breath all the time; however, it got worse over the last one week. In addition, she reports a productive cough with white phlegm. She denies fever or chills or any constitutional symptoms. The patient is on Prednisone 20 milligrams daily at home along with albuterol. She denies any tobacco use; however she reports using marijuana. The patient denies any exposure to sick contacts. She was placed on bronchodilators and was on Solu-Medrol 40 milligrams IV q. 8 which was discontinued and she was placed on Prednisone 40 milligrams daily. Pulmonary medicine was consulted for exacerbation of her sarcoidosis. PAST MEDICAL HISTORY: Her past medical history is significant for: 1. Bronchial asthma. 2. Sarcoidosis. PAST SURGICAL HISTORY: 1. Previous oophorectomy. 2. Previous hernia repair. 3. Previous lung, liver and kidney biopsy. ALLERGIES: 1. AMOXICILLIN. 2. PENICILLIN G. 3. TRAMADOL. SOCIAL HISTORY: Nonsmoker. Reports using cannabinoids. Denies any illicit drug use. MEDICATIONS AT HOME: 1. Albuterol. 2. Prednisone. FAMILY HISTORY: Diabetes mellitus and hypertension run in the family. REVIEW OF SYSTEMS: The review of systems is as per the history of present illness, and the rest of the review of systems is unremarkable. PHYSICAL EXAMINATION: GENERAL: This is a 31-year-old female lying in bed in no acute distress on room air oxygen. VITAL SIGNS: Afebrile, pulse of 66, respiratory rate 20, blood pressure 132/97, saturation of 97% on room air. HEAD, EYES, EARS, NOSE, THROAT: Normocephalic and atraumatic. Pupils equal, round and reactive to light and accommodation. Extraocular muscles intact. Conjunctivae are pink. Nonicteric sclerae. Oral mucosa within normal limits. NECK: The neck is supple. No jugular venous distention, adenopathy or thyromegaly. Trachea in the midline. CARDIOVASCULAR: Regular rate and rhythm. Normal S1 and S2. No murmurs, rubs or gallops noted. PULMONARY: Bilateral equal air entry with a few coarse breath sounds at the bases. ABDOMEN: The abdomen is soft, nontender, obese, positive bowel sounds. EXTREMITIES: No cyanosis, clubbing or edema. NEUROLOGIC: No focal sensory deficit. LABORATORY DATA: Laboratory data from June 16: WBCs 11.9, hemoglobin 13, hematocrit 38, platelet count 256,000. Sodium 137, potassium 4.5, chloride 105, carbon dioxide 25, BUN 21, creatinine 0.9, glucose 116, uric acid 6.4. Urinalysis positive for leukocyte esterase, 60 WBCs, many calcium oxalate crystals, rare bacteria. RADIOGRAPHIC STUDIES: A chest x-ray showed mild interstitial prominence. IMPRESSION: 1. Dyspnea. 2. Exacerbation of sarcoidosis. 3. Bronchial asthma. 4. Morbid obesity. 5. Urinary tract infection. 6. Left ureteral stone with mild obstructive uropathy. RECOMMENDATIONS: 1. Oxygen PRN to maintain saturations above 92%. In addition, will continue with bronchodilators. She was placed on DuoNeb PRN. 2. Agree with steroids. She is currently on Prednisone 40 milligrams daily. 3. Will proceed with a CT scan of the chest without contrast for further evaluation of her pulmonary parenchyma. 4. Will check angiotensin converting enzyme level. 5. Will place on empiric antibiotics in the form of Levaquin for seven days. Monitor for signs of infection which include fever and WBCs. 6. Will obtain a sputum culture with Gram stain. 7. Will need pulmonary function tests when stable to assess the severity of her obstructive and restrictive lung disease. 8. She will likely need sleep study as an outpatient to rule out obstructive sleep apnea. Further recommendations will be based on the hospital course. Thank you for the consultation and for allowing us to participate in this patient's care. MD AKUA Medina/XOCHITL /12:56 PM /1:07 PM
[2017-06-17] MEDS: LEVOFLOXACIN 750 MG TAB PO SCH (14:48)
--- NOTE | 2017-06-17 15:21 | PD.CONS ---
[facility] Service Urology Consult Requested By Primary Care Physician Nancy Boateng MD Diagnosis: History of Present Illness 31 yo female h/o Sarcoidosis presented to ER with acute onset of left lower abdominal pain, 6/10 in intensity, SOB. CT A/P was performed which showed a 5 mm left distal ureteral stone, mild hydronephrosis along with multiple nonobstructing stones. Denies hematuria, dysuria, fevers, chills, nausea. She has 1 stone in the past. Her pain is improved, down to a 4/10. She is currently taking high dose Steroids. Review of Systems Gastrointestinal: COMPLAINS OF: Abdominal pain Except as stated in HPI: all other systems reviewed are Neg Past Family Social History Past Medical History Sarcoidosis, kidney stone, Ovarian Teratoma, Asthma Past Surgical History Hysterectomy, hernia repair, Kidney Biopsy Reported Medications Proair, Prednisone Allergies: Coded Allergies: penicillin G (Unverified Allergy, Severe, UNKNOWN, 06/14/17) tramadol (Unverified Allergy, Severe, Anaphylaxis, 06/14/17) sumatriptan (Unverified Allergy, Intermediate, 06/14/17) increased headache amoxicillin (Unverified Allergy, Unknown, 06/14/17) Family History Denies urolithiasis, malignancies Social History + Marijuana; denies EtOH, tobacco Physical Exam Vital Signs Date Time Temp Pulse Resp B/P (MAP) Pulse Ox O2 Delivery O2 Flow Rate FiO2 06/17/17 14:59 22 06/17/17 12:45 96.1 66 20 132/97 (109) 97 06/17/17 09:35 96.2 75 20 133/70 (91) 99 06/17/17 04:04 66 18 118/62 (80) 94 06/16/17 22:56 98.1 67 18 137/90 (106) 93 06/16/17 15:37 97.8 90 16 130/59 (82) 95 06/16/17 15:22 20 Physical Exam GENERAL: This is a well-nourished, well-developed patient, in no apparent distress. SKIN: No rashes, ecchymoses or lesions. Cool and dry. HEAD: Atraumatic. Normocephalic. No temporal or scalp tenderness. EYES: Pupils equal round and reactive. Extraocular motions intact. No scleral icterus. No injection or drainage. ENT: Nose without bleeding, purulent drainage or septal hematoma. Throat without erythema, tonsillar hypertrophy or exudate. Uvula midline. Airway patent. NECK: Trachea midline. No JVD or lymphadenopathy. Supple, nontender, no meningeal signs. CARDIOVASCULAR: Regular rate and rhythm without murmurs, gallops, or rubs. RESPIRATORY: Clear to auscultation. Breath sounds equal bilaterally. No wheezes , rales, or rhonchi. GASTROINTESTINAL: Abdomen soft, non-tender, nondistended. No hepato-splenomegaly , or palpable masses. No guarding. GENITOURINARY: not indicated. MUSCULOSKELETAL: Extremities without clubbing, cyanosis, or edema. No joint tenderness, effusion, or edema noted. No calf tenderness. Negative Homans sign bilaterally. NEUROLOGICAL: Awake and alert. Cranial nerves II through XII intact. Motor and sensory grossly within normal limits. Five out of 5 muscle strength in all muscle groups. Normal speech. Lab results reviewed: Yes Date/Time Source Procedure Growth Status 06/15/17 00:37 Urine Clean Catch Urine Culture - Final 50-100,000 CFU/ML MIXED GRAM POSITIVE... Complete Result Diagram: 06/16/1780406/16/17804 Personally reviewed images: Yes (5 mm distal left ureteral stone with mild hydronephrosis) Imaging Last Impressions Abdomen/Pelvis CT 06/14/172158 Signed Impressions: Service Date/Time: Thursday, June 15, 2017 00:19 - CONCLUSION: 1. 5 x 7 x 5 mm stone of the distal left ureter causing mild obstructive uropathy. The stone is not clearly seen on the initial jewel hole driller radiograph. 2. Several large cysts stones of the left kidney that appear to be nonobstructing. There is contrast being excreted by both kidneys that limits evaluation for nephrolithiasis. 3. Interim ventral hernia repair that appears intact. 4. Mild hepatomegaly, improved. Spleen size now within normal limits. 5. Interstitial disease of the visualized lung bases appears to be slightly worse in the interim. Lenin Mcneill MD Chest X-Ray 06/14/17 0000 Signed Impressions: Service Date/Time: May 22:02 - CONCLUSION: 1. Mild new interstitial prominence which may reflect interstitial pneumonia in the appropriate clinical setting. Brad Oakes MD Assessment and Plan Assessment and Plan 31 yo female h/o Sarcoidosis with 5 mm left distal ureteral stone, mild hydonephrosis -Conservative management. -She warrants a trial of passage with fluids and Flomax. In addition, the high dose Steroid regimen she is currently taking can help facilitates passage of stone. -She will ultimately need a metabolic work up. -F/U as outpatient. -Thanks you for consult. Please call with any questions. Available if needed. Erlin Rao MD Jun 17, 2017 15:21
[2017-06-17 16:42] VITALS: BP 141/86; PULSE 64; RESP 20; TEMP 97.7; O2SAT 97
--- NOTE | 2017-06-17 18:08 | RADRPT ---
EXAM DATE/TIME: 06/17/2017 17:53 [facility] COMPARISON: CHEST SINGLE AP, June 14, 2017, 22:02. CT THORAX W/O CONTRAST, October 02, 2016, 22:35. INDICATIONS : Shortness of breath; sarcoidosis. RADIATION DOSE: 20.07 CTDIvol (mGy) ; Patient body habitus MEDICAL HISTORY : Seizures. Congestive heart failure. Gastroesophageal reflux disease. Renal failure, hypertension SURGICAL HISTORY : Umbilical hernia repair. bilateral oopherectomy ENCOUNTER: Initial ACUITY: 1 day PAIN SCALE: 0/10 LOCATION: chest TECHNIQUE: Volumetric scanning of the chest was performed. Using automated exposure control and adjustment of t he mA and/or kV according to patient size, radiation dose was kept as low as reasonably achievable to obtain optimal diagnostic quality images. DICOM format image data is available electronically for r eview and comparison. Follow-up recommendations for detected pulmonary nodules are based at a minimum on nodule size and pa tient risk factors according to Fleischner Society Guidelines. FINDINGS: LUNGS: Today's exam is compared to the prior study from 10/02/2016. There has been no change in the chronic b ilateral interstitial lung disease. The scattered reticular nodular densities are stable. No new area s of parenchymal consolidation are demonstrated. PLEURAE: There is no pleural thickening or pleural effusion. MEDIASTINUM: The heart and great vessels demonstrate no acute abnormality. There is no mediastinal or hilar lymph adenopathy. The previously noted enlarged subcarinal lymph node has decreased in size now measuring 1 .7 cm. Stable small nonspecific soft tissue density just anterior to the heart measuring approximatel y 2.2 cm. This is not significantly changed compared to the prior exam. AXILLAE: Within normal limits. No lymphadenopathy. MUSCULOSKELETAL: Within normal limits for patient age. Stable MISCELLANEOUS: The visualized upper abdominal organs demonstrate no acute abnormality. Tiny 2 mm nonobstructing ston e upper pole right kidney CONCLUSION: 1. Stable bilateral chronic interstitial lung disease with no new or significant changes compared to 10/02/2016 2. Tiny nonobstructing stone in the upper pole the right kidney. 3. Stable CT thorax compared to the prior study. Shawn Hernandez MD on June 17, 2017 at 18:02 Board Certified Radiologist. This report was verified electronically.
[2017-06-17 20:41] VITALS: BP 133/83; PULSE 66; RESP 18; O2SAT 94
[2017-06-18 00:19] VITALS: BP 134/72; PULSE 67; RESP 18; TEMP 97.9; O2SAT 95
[2017-06-18 03:54] VITALS: BP 121/74; PULSE 75; RESP 18; TEMP 98.1; O2SAT 100
[2017-06-18] MEDS: MORPHINE SULFATE 2 MG/ML INJ IV PUSH PRN ×2 (04:03→10:13)
[2017-06-18 08:13] VITALS: BP 130/74; PULSE 68; RESP 18; TEMP 97.6; O2SAT 98
[2017-06-18] MEDS ORDERED: predniSONE 20 MG TAB PO SCH (09:00)
[2017-06-18] MEDS: LEVOFLOXACIN 750 MG TAB PO SCH (09:18)
[2017-06-18] MEDS: TAMSULOSIN HCL 0.4 MG CAP PO SCH (09:18)
[2017-06-18] MEDS: SODIUM CHLORIDE 0.9% FLUSH 10 ML FLUSH IV FLUSH SCH (09:18)
[2017-06-18] MEDS: DOCUSATE SODIUM 50 MG/SENNA 8.6 MG TAB PO SCH (09:19)
[2017-06-18] MEDS: RESP: ALBUTEROL 2.5 MG/IPRATROPIUM 0.5 MG NEB (SCH) NEB (09:23)
[2017-06-18 09:25] VITALS: O2SAT 98
--- NOTE | 2017-06-18 09:36 | HHI.PR ---
Subjective Remarks Follow up for sarcoidosis/asthma flare, and ureteral stone. The patient continues to report improvement. She really wants to go home. Shortness of breath improved. O2 sat stable on room air. LLQ pain also improved. She is urinating without difficulty. Denies fevers/chills. She has no other medical complaints at this time. Objective Vitals Vital Signs Date Time Temp Pulse Resp B/P (MAP) Pulse Ox O2 Delivery O2 Flow Rate FiO2 06/18/17 09:25 98 21 06/18/17 08:13 97.6 68 18 130/74 (92) 98 06/18/17 03:54 98.1 75 18 121/74 (90) 100 06/18/17 02:13 21 06/18/17 00:19 97.9 67 18 134/72 (92) 95 06/17/17 20:41 66 18 133/83 (100) 94 06/17/17 16:42 97.7 64 20 141/86 (104) 97 06/17/17 14:59 22 06/17/17 12:45 96.1 66 20 132/97 (109) 97 I/O 06/17/17 06/17/17 06/17/17 06/18/17 06/18/17 06/18/17 06:59 14:59 22:59 06:59 14:59 22:59 Intake Total 100 ml 200 ml Balance 100 ml 200 ml Intake Oral 200 ml IV Total 100 ml # Voids 2 Result Diagram: 06/16/17 0805 06/16/17 0805 Imaging Last Impressions Chest CT 06/17/17 0000 Signed Impressions: Service Date/Time: Saturday, June 17, 2017 17:53 - CONCLUSION: 1. Stable bilateral chronic interstitial lung disease with no new or significant changes compared to 10/02/2016 2. Tiny nonobstructing stone in the upper pole the right kidney. 3. Stable CT thorax compared to the prior study. Shawn Hernandez MD Abdomen/Pelvis CT 06/14/175 Signed Impressions: Service Date/Time: Thursday, June 15, 2017 00:19 - CONCLUSION: 1. 5 x 7 x 5 mm stone of the distal left ureter causing mild obstructive uropathy. The stone is not clearly seen on the initial nailhead operator radiograph. 2. Several large cysts stones of the left kidney that appear to be nonobstructing. There is contrast being excreted by both kidneys that limits evaluation for nephrolithiasis. 3. Interim ventral hernia repair that appears intact. 4. Mild hepatomegaly, improved. Spleen size now within normal limits. 5. Interstitial disease of the visualized lung bases appears to be slightly worse in the interim. Lenin Mcneill MD Chest X-Ray 06/14/17 0000 Signed Impressions: Service Date/Time: May 22:02 - CONCLUSION: 1. Mild new interstitial prominence which may reflect interstitial pneumonia in the appropriate clinical setting. Brad Oakes MD Objective Remarks GENERAL: Well-nourished, well-developed pleasant female patient in [facility]. SKIN: Warm and dry. No rash. HEENT: Normocephalic. Atraumatic.Pupils equal and round. Mucous membranes pink and moist. CARDIOVASCULAR: Regular rate and rhythm. No murmur appreciated. RESPIRATORY: No accessory muscle use. Clear to auscultation. Breath sounds equal bilaterally. GASTROINTESTINAL: Abdomen soft, nondistended. Nontender. Normoactive bowel sounds x4. MUSCULOSKELETAL: No obvious deformities. Extremities without clubbing, cyanosis , or edema. No CVA tenderness. NEUROLOGICAL: Awake and alert. No obvious cranial nerve deficits. Motor grossly within normal limits. Normal speech. PSYCHIATRIC: Appropriate mood and affect; insight and judgment normal. Medications and IVs Current Medications Medications (Trade) Dose Ordered Sig/Adelso Route Start Time Stop Time Status Last Admin (NS Flush) 2 ml UNSCH PRN IV FLUSH 06/15/17 01:15 06/18/17 10:13 (NS Flush) 2 ml BID IV FLUSH 06/15/17 09:00 06/18/17 09:18 (Narcan Inj) 0.4 mg UNSCH PRN IV PUSH 06/15/17 01:15 (Caroline-Colace) 1 tab BID PO 06/15/17 09:00 06/15/17 20:12 (Milk Of Magnesia Liq) 30 ml Q12H PRN PO 06/15/17 01:15 (Senokot) 17.2 mg Q12H PRN PO 06/15/17 01:15 (Dulcolax Supp) 10 mg DAILY PRN RECTAL 06/15/17 01:15 (Lactulose Liq) 30 ml DAILY PRN PO 06/15/17 01:15 (Duoneb Neb) 1 ampule Q4HR NEB PRN NEB 06/15/17 01:15 06/15/17 16:08 (Morphine Inj) 2 mg Q4H PRN IV PUSH 06/15/17 01:15 06/18/17 10:13 (Duoneb Neb) 1 ampule Q8HR WHILE AWAKE NEB NEB 06/15/17 17:15 06/18/17 09:23 (Flomax) 0.4 mg DAILY PO 06/16/17 09:00 06/18/17 09:18 (Tylenol) 650 mg Q4H PRN PO 06/15/17 23:30 06/16/17 14:06 (Deltasone) 40 mg DAILY PO 06/18/17 09:00 06/18/17 09:18 (Levaquin) 750 mg DAILY PO 06/17/17 13:00 06/24/17 12:59 06/18/17 09:18 A/P Assessment and Plan 31-year-old female with past medical history significant for sarcoidosis and asthma presents to the emergency department for evaluation of increasing shortness of breath and left lower quadrant abdominal pain. Sarcoidosis/Asthma Exacerbation: patient presents with SOB/wheezing. Afebrile, no leukocytosis, no sepsis, no cough, therefore unlikely pneumonia. -Chest x-ray significant for mild interstitial prominence, images reviewed -CT abd/pelvis showed interstitial disease of the visualized lung bases worse than previous -Given steroids with IV Solumedrol 40mg q8h, decreased to prednisone 40mg daily x5days -Continue duonebs q8h adelso and q4h prn -Started on levaquin 750mg qd x7days (last dose 06/23) -Consulted patient's teacher tutor, Dr. De La Cruz, seen by Dr. Benoit -Chest CT 06/17 showed stable bilateral chronic interstitial lung disease with no new or significant changes compared to prior CT 10/02/16 -Symptoms much improved, patient's O2 sat stable on room air -Case management to assist with arranging nebulizer at discharge -Await further recommendations from pulmonology Ureteral stone, UTI: UA with evidence of UTI. CT of the abdomen/pelvis 5 x 7 x 5 mm stone of the distal left ureter causing mild obstructive uropathy -Started on flomax 0.4mg daily -Urine culture with mixed gram positive -Given antibiotics with IV Rocephin x3days, will discontinue -Monitor BMP, renal function wnl -Consulted urology, recommends conservative management with flomax, cleared for discharge, outpatient f/up for metabolic work up DVT Prophylaxis: teds/SCDs Discharge Planning Likely discharge today if cleared by pulmonology. Mable Patel PA-C Jun 18, 2017 9:36 am
[2017-06-18] MEDS ORDERED: PRED20 PO (13:20)
[2017-06-18] MEDS ORDERED: TAMS5CAP PO (13:20)
[2017-06-18] MEDS ORDERED: LEVA750T9 PO (13:20)
[2017-06-18] MEDS ORDERED: Albuterol-Ipratropium Neb NEB (13:20)
[2017-06-18] MEDS ORDERED: HYDR-3516 PO (13:22)
--- NOTE | 2017-06-18 13:22 | HHI.DCPOC ---
Discharge Care Plan Diagnosis: (1) Sarcoidosis of lung (2) Asthma (3) Left ureteral stone Goals to Promote Your Health * To prevent worsening of your condition and complications * To maintain your health at the optimal level Directions to Meet Your Goals Take your medications as prescribed Follow your dietary instruction Follow activity as directed Keep your appointments as scheduled Take your immunizations and boosters as scheduled If your symptoms worsen call your PCP, if no PCP go to Urgent Care Center or Emergency Room Smoking is Dangerous to Your Health. Avoid second hand smoke Call the 24-hour hour crisis hotline for domestic abuse at Mable Patel PA-C Jun 18, 2017 1:22 pm
[2017-06-18] MEDS ORDERED: ACETAMINOPHEN/HYDROcodone 325 MG/5 MG TAB PO PRN (13:30)
--- NOTE | 2017-06-18 15:17 | HHI.DS ---
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 Brief History - From Admission 31-year-old female with past medical history significant for sarcoidosis and asthma presents to the emergency department for evaluation of increasing shortness of breath and left lower quadrant abdominal pain. The patient reports she is having increasing shortness of breath from baseline for approximately one week. She follows with Dr. De La Cruz. She has been compliant with her oral steroids. Patient also complains of a one-day history of left lower quadrant abdominal/pelvic pain. She denies any associated dysuria states the pain radiates to her back and down her leg. She denies any fever/chills. Denies cough. No chest pain. No nausea/vomiting/diarrhea. CBC/BMP: 06/16/17 0805 06/16/17 0805 Significant Findings Laboratory Tests Test 06/16/17 08:05 06/17/17 14:40 White Blood Count 11.9 TH/MM3 (4.0-11.0) Neutrophils (%) (Auto) 85.1 % (16.0-70.0) Neutrophils # (Auto) 10.2 TH/MM3 (1.8-7.7) Blood Urea Nitrogen 21 MG/DL (7-18) Random Glucose 116 MG/DL (74-106) Estimat Glomerular Filtration Rate 87 ML/MIN (>89) Uric Acid 6.5 MG/DL (2.6-6.0) Imaging Last Impressions Chest CT 06/17/17 0000 Signed Impressions: Service Date/Time: Saturday, June 17, 2017 17:53 - CONCLUSION: 1. Stable bilateral chronic interstitial lung disease with no new or significant changes compared to 10/02/2016 2. Tiny nonobstructing stone in the upper pole the right kidney. 3. Stable CT thorax compared to the prior study. Shawn Hernandez MD Abdomen/Pelvis CT 06/14/17 2159 Signed Impressions: Service Date/Time: Thursday, June 15, 2017 00:19 - CONCLUSION: 1. 5 x 7 x 5 mm stone of the distal left ureter causing mild obstructive uropathy. The stone is not clearly seen on the initial optics engineer radiograph. 2. Several large cysts stones of the left kidney that appear to be nonobstructing. There is contrast being excreted by both kidneys that limits evaluation for nephrolithiasis. 3. Interim ventral hernia repair that appears intact. 4. Mild hepatomegaly, improved. Spleen size now within normal limits. 5. Interstitial disease of the visualized lung bases appears to be slightly worse in the interim. Lenin Mcneill MD Chest X-Ray 06/14/17 0000 Signed Impressions: Service Date/Time: May 22:02 - CONCLUSION: 1. Mild new interstitial prominence which may reflect interstitial pneumonia in the appropriate clinical setting. Brad Oakes MD PE at Discharge GENERAL: Well-nourished, well-developed pleasant female patient in [facility]. SKIN: Warm and dry. No rash. HEENT: Normocephalic. Atraumatic.Pupils equal and round. Mucous membranes pink and moist. CARDIOVASCULAR: Regular rate and rhythm. No murmur appreciated. RESPIRATORY: No accessory muscle use. Clear to auscultation. Breath sounds equal bilaterally. GASTROINTESTINAL: Abdomen soft, nondistended. Nontender. Normoactive bowel sounds x4. MUSCULOSKELETAL: No obvious deformities. Extremities without clubbing, cyanosis , or edema. No CVA tenderness. NEUROLOGICAL: Awake and alert. No obvious cranial nerve deficits. Motor grossly within normal limits. Normal speech. PSYCHIATRIC: Appropriate mood and affect; insight and judgment normal. Hospital Course 31-year-old female with past medical history significant for sarcoidosis and asthma presents to the emergency department for evaluation of increasing shortness of breath and left lower quadrant abdominal pain. Sarcoidosis/Asthma Exacerbation: patient presents with SOB/wheezing. Afebrile, no leukocytosis, no sepsis, no cough, therefore unlikely pneumonia. Chest x- ray significant for mild interstitial prominence. CT abd/pelvis showed interstitial disease of the visualized lung bases worse than previous. Pulmonology was consulted. Given steroids with IV Solumedrol 40mg q8h, decreased to prednisone 40mg daily x5days at discharge. Continue duonebs q8h oliver and q4h prn. Pulmonology started on levaquin 750mg qd x7days (last dose 06/23) . Consulted patient's hand sizer, Dr. De La Cruz, seen by Dr. Benoit. Chest CT showed stable bilateral chronic interstitial lung disease with no new or significant changes compared to prior CT 10/02/16. Symptoms much improved, patient's O2 sat stable on room air. Case management to assist with arranging nebulizer at discharge. Discussed with Dr. Barrios on day of discharge, patient stable, cleared from pulmonology standpoint, recommended to follow up with Dr. De La Cruz after discharge. Ureteral stone, UTI: UA with evidence of UTI. CT of the abdomen/pelvis 5 x 7 x 5 mm stone of the distal left ureter causing mild obstructive uropathy. Started on flomax 0.4mg daily. Urine culture with mixed gram positive. Given antibiotics with IV Rocephin x3days, now discontinued. Renal function wnl. Consulted urology, seen by Dr. Rao, recommends conservative management with flomax, cleared for discharge, outpatient f/up for metabolic work up. Pt Condition on Discharge: Stable Discharge Disposition: Discharge Home Discharge Time: > 30 minutes Discharge Instructions DIET: Follow Instructions for: As Tolerated, No Restrictions Activities you can perform: Regular-No Restrictions Follow up Referrals: PCP Follow-up - 1 Week with Nancy Boateng MD Pulmonology - 1 Week with Ramiro De La Cruz MD Urology - 1 Week with Erlin Rao MD New Medications: Hydrocodone/Acetaminophen (Hydrocodone-Acetamin 5-325 mg) 5 Mg-325 Mg Tablet 1 TAB PO Q6HR PRN for pain, #12 TAB Nebulizer (Nebulizer) 1 Mis Mis EA .XX DIRECTED for Breathing Treatment, #1 0 Refills Levofloxacin (Levaquin) 750 Mg Tablet 750 MG PO DAILY for Infection for 5 Days, #5 TAB Prednisone (Prednisone) 20 Mg Tab 40 MG PO DAILY for Inflammation, #10 TAB Take 40mg daily x5days, then return to previous prednisone dosing. Tamsulosin (Flomax) 0.4 Mg Cap 0.4 MG PO DAILY for kidney stone, #10 CAP [Albuterol-Ipratropium Neb] () 1 AMPULE NEBU 1 AMPULE NEB TID NEB PRN for SOB/WHEEZING, #90 NEBULE Continued Medications: Albuterol 8.5 GM Inh (Proair Hfa 8.5 GM Inh) 90 Mcg/Act Aer 2 PUFF INH Q4-6H PRN for SHORTNESS OF BREATH, #1 INHALER 0 Refills 108 mcg/actuation Discontinued Medications: Prednisone (Prednisone) 20 Mg Tab 20 MG PO BID for Broncospasm, #6 TAB Mable Patel PA-C Jun 18, 2017 3:17 pm
== END 2017-06-18 15:05 | disposition home or self-care (01) ==
LOC: NEPD 18:43 → UNDOADMIN 06-15 01:12 → NEDA 06-15 01:12 → INTOOBSV 06-15 01:31 → NEDA 06-15 01:31 → NEPFCDU 06-15 02:46
PROVIDERS: ADMIT Family Medicine; ATTEND Family Medicine
DX: N13.2 Hydronephrosis with renal and ureteral calculous obstruction (principal); D86.0 Sarcoidosis of lung; J84.9 Interstitial pulmonary disease, unspecified; I10 Essential (primary) hypertension; N39.0 Urinary tract infection, site not specified; R94.31 Abnormal electrocardiogram [ECG] [EKG]; J45.901 Unspecified asthma with (acute) exacerbation; E66.01 Morbid (severe) obesity due to excess calories; F12.90 Cannabis use, unspecified, uncomplicated; K21.9 Gastro-esophageal reflux disease without esophagitis; Z79.52 Long term (current) use of systemic steroids; Z87.442 Personal history of urinary calculi; Z90.710 Acquired absence of both cervix and uterus
CPT/HCPCS: 71045; 71250; 74177; 80048; 80053; 81001; 82164; 83690; 84484; 84550; 84703; 85025; 87070; 87086; 87205; 93005; 94640; 94664; 96365; 96366; 96375; 96376; 99285; G0378; J0696; J1885; J2270; J2920; J2930; J7512; Q9967